=== PATIENT | male | born 1955 | race Caucasian/White ===

== ENCOUNTER 2024-07-17 00:14 | Inpatient (IN) | payer MEDICARE, MEDICAID, SELFPAY ==
[2024-07-17] VITALS (23 sets, daily range): BP systolic 75–126; BP diastolic 41–87; PULSE 63–109; RESP 14–22; TEMP 36.3–37.2; O2SAT 94–100; BMI 24.2
--- NOTE | 2024-07-17 00:19 | PC.NURSE ---
First contact with pt in Room 3, pt changed into gown, connected to bedside rental sales associate, call light within reach.
--- NOTE | 2024-07-17 00:30 | PC.NURSE ---
Pt incontinent, dark-red blood noted coming from rectum, brief changed, chepe-care provided.
--- NOTE | 2024-07-17 00:41 | XR_ITS ---
Examination: CT abdomen and pelvis without contrast. Coronal 3-D reconstructions. Sagittal 2-D reconstructions. Date and time of exam:July 17, 2024 1446 hours INDICATIONS: Onset lower gastrointestinal bleeding today CTDI: vol (mGy): 8.09 DLP: (mGycm): 515 Technique: Axial images of the abdomen have been obtained, 3 mm slice thickness Intravenous contrast material has not been administered. Low dose protocols were performed. One or more of the following dose reduction techniques were used; automated exposure control, adjustment of the mA and/or KV according to patient size, use of iterative reconstruction technique. Findings: Lack of intravenous contrast limits assessment for gastrointestinal bleeding Small retrocardiac gastric hernia Patient motion obscures scan detail Cholelithiasis Distended gallbladder Gallbladder wall appears thickened Fatty liver No pancreatic mass No bowel obstruction Significant diffuse thickening of the wall of the rectosigmoid with abundant stool in the rectum Urinary bladder is contracted IMPRESSION: Cholelithiasis, recommend gallbladder sonography follow-up to exclude cholecystitis Fatty liver Prominent diffuse wall thickening involving the rectosigmoid colon, consider nonspecific colitis, recommend colonoscopy to exclude underlying colonic tumor in the rectosigmoid region
--- NOTE | 2024-07-17 00:47 | PD.EDADULT ---
ED General RME/HPI General Chief complaint: GI Bleed Stated complaint: SYNCOPAL Time Seen by Provider: 07/17/24 00:46 Arrival date/time: 07/17/24 00:14 RME / HPI RME / HPI narrative: Chief complaint: from SNF - bright red blood in toilet HPI: Patient is a 68 year old male who is minimally verbal at baseline, with past medical history developmental delay, essential HTN, Type 2 NIDDM, BPH, GERD and constipation, who was brought to the ER by EMS after being found with large amount of bright red blood in the toilet at the intermediate. Per EMS, intermediate denied any past history of GIB. He is not on any blooth thinners at this time as per records. On removing the diaper, large amount of reddish-brown output noted, no stools. Patient does not appear to be in any discomfort at rest, but grimaces whenever the abdominal area is touched. Allergies: NKFDA Social history: Tobacco?Use:?Negative ETOH?Use:?Negative Drug?Note:?Negative Social?History?Note:?From [facility] Family history: Unknown Related Data Home Medications ?Medication ?Instructions ?Recorded ?Confirmed tamsulosin 0.4 mg capsule (Flomax) 0.4 mg PO QDAY ##0 10/05/15 11/23/22 metformin 500 mg tablet 500 mg PO BID #0 tabs 01/30/16 11/23/22 (Glucophage) nitrofurantoin macrocrystal 50 mg 50 mg PO QDAY 08/27/18 11/23/22 capsule lisinopril 10 mg tablet 10 mg PO QDAY 11/22/19 11/23/22 atorvastatin 20 mg tablet 1 tab PO QDAY 12/25/21 11/23/22 docusate sodium 250 mg capsule 1 cap PO BID 12/25/21 11/23/22 finasteride 5 mg tablet 5 mg PO QDAY 12/25/21 11/23/22 Previous Rx's ?Medication ?Instructions ?Recorded cefuroxime axetil 250 mg tablet 250 mg PO BID #14 tabs 09/20/22 Allergies Allergy/AdvReac Type Severity Reaction Status Date / Time ibuprofen Allergy unknown Verified 02/08/23 12:09 Review of Systems Review of Systems ROS Unobtainable: unobtainable due to mental status ED Exam Narrative Physical exam: Constitutional Developmentally delayed, minimally verbal at baseline HEENT Vision grossly intact. Patent nares. Trachea midline. Respiratory Chest normal on inspection and clear to auscultation bilaterally. Cardiovascular S1 and S2 audible, RRR. No murmurs or carotid bruit. No gross JVD. Abdominal Soft and tender to palpation in LLUQ and LLQ. BS + Genitourinary No bladder tenderness, no flank pain. Normal to palpation. Musculoskeletal Extremities tone within normal limits. No LE edema. Neurological CN II - XII grossly intact. Extremity motor and sensation grossly intact. Skin Warm, dry and intact. No apparent lesions. Course Course Course Narrative: CT Abdomen/Pelvis wo con: Impression: 1. Gallstones and distended gallbladder suspicious for acute cholecystitis,consider correlation with right upper quadrant ultrasound. 2. Probable mild colitis. 3. Small hiatus hernia. 4. Possible cystitis. Quality Measures none Orders Category Date Time Status Continuous Pulse Oximetry STAT Care 07/17/24 01:32 Completed EKG (ED ONLY) *Do not use* NOW Care 07/17/24 00:58 Completed In and Out Catheter X1PRN Care 07/17/24 01:32 Active Insert IV NOW Care 07/17/24 01:04 Active Occult Blood,Stool (Nursing) NOW Care 07/17/24 00:41 Active Transfuse,blood/blood products NOW Care 07/17/24 03:51 Active Consult to Gastroenterology Routine Cons 07/17/24 03:[address] abdomen pelvis wo con Stat Exams 07/17/24 00:41 Taken EKG (ED Only) Stat Exams 07/17/24 00:58 Draft B-Type Natriuretic Peptide Stat Lab 07/17/24 01:10 Completed Blood Culture (Lab) Stat Lab 07/17/24 01:35 Received CBC Stat Lab 07/17/24 01:10 Completed CMP [Comprehensive Metabolic Panel] Stat Lab 07/17/24 01:10 Completed Lactic Acid [Lactate (Lactic Acid)] Stat Lab 07/17/24 01:35 Results Lactic Acid [Lactate (Lactic Acid)] Stat Lab 07/17/24 04:15 Ordered Magnesium Stat Lab 07/17/24 01:10 Completed Phosphorous Stat Lab 07/17/24 01:10 Completed Procalcitonin Stat Lab 07/17/24 01:10 Completed Prothrombin Time with INR Stat Lab 07/17/24 01:10 Completed Type and Screen Stat Lab 07/17/24 01:20 Results Urinalysis Stat Lab 07/17/24 00:43 Ordered prbc [Red Blood Cells] Stat Lab 07/17/24 01:20 Results Piper/Tazo 3.375 gm [Zosyn] Med 07/17/24 01:30 Discontinued 3.375 gm in 50 ml IV X1 Sodium Chloride 0.9% 1000 ml [Ns] 1,000 ml Med 07/17/24 01:11 Discontinued IV 999 mls/hr Sodium Chloride 0.9% 250 ml [Ns] 250 ml Med 07/17/24 00:41 Discontinued IV 999 mls/hr Sodium Chloride 0.9% 500 ml [Ns] 500 ml Med 07/17/24 03:56 Discontinued IV 999 mls/hr Reevaluation(s) Reevaluation #1: 4:15 AM BP improved after 1.5L IVF 1U PRBC running Vital Signs Vital signs: Vital Signs Temperature 98.9 F 07/17/24 00:31 Pulse Rate 109 H 07/17/24 00:31 Respiratory Rate 22 H 07/17/24 00:31 Blood Pressure 126/80 07/17/24 00:31 Pulse Oximetry (%) 99 07/17/24 00:31 Oxygen Delivery Method Room Air 07/17/24 00:31 [facility] Patient data External records reviewed:: [facility] previous records Clinical information provided by:: EMS Social determinants that could affect healthcare access:: mental health Patient has the following chronic illnesses:: developmental delay, essential HTN, Type 2 NIDDM, BPH, GERD and constipation, How is presenting disease/condition affected by chronic disease/condition?: exacerbated by Evaluation data The following diagnostics were reviewed and interpreted by me:: lab results, radiology exam(s) and EKG tracing(s) Lab and/or radiology exams considered but not ordered:: MRI Interpretation Summary: GIB secondary to colitis noted on CT abdo, pending endoscopy for further evaluation Medications Medications considered but not ordered:: morphine Medication administrations:: Medication Administration History Discontinued Medications Sodium Chloride (Ns) 250 mls @ 999 mls/hr IV .Q16M ONE Stop: 07/17/24 00:56 Last Infusion: 07/17/24 01:18 Dose: Infused Documented By: Admin: 07/17/24 01:02 Dose: 999 mls/hr Documented By: LIT Sodium Chloride (Ns) 1,000 mls @ 999 mls/hr IV .Q1H1M ONE Stop: 07/17/24 02:11 Last Infusion: 07/17/24 02:25 Dose: Infused Documented By: Admin: 07/17/24 01:24 Dose: 999 mls/hr Documented By: LIT Piperacillin/Tazobactam/Dextrose (Zosyn) 3.375 gm in 50 mls @ 100 mls/hr IV X1 ONE Stop: 07/17/24 01:59 Last Infusion: 07/17/24 02:16 Dose: Infused Documented By: Admin: 07/17/24 01:46 Dose: 100 mls/hr Documented By: LIT Sodium Chloride (Ns) 500 mls @ 999 mls/hr IV .Q31M ONE Stop: 07/17/24 04:26 Last Admin: 07/17/24 04:26 Dose: 999 mls/hr Documented By: LIT continue Consultations Consultation(s) initiated? (list below): Yes Consultation #1 (Physician, Specialty, Details): GI - Dr Gibbs Diagnosis Differential Diagnosis ED Complaint MDM: Diverticulitis Most likely diagnosis given after review of the tests above:: Acute GI bleed Admission Indicated Admission indicated?: indicated Explain why admission is indicated or not indicated:: acute GIB Admission Request Was there a request for admission?: Yes Admission Attestation Admission request attestation: Discussed case with Dr Adan from Hospitalist service regarding admission. Discussed patients ED course, exam findings, labs, and radiology results. The Hospitalist [agrees] to accept the patient for admission. Disposition Plan Disposition Plan: Admit Medical Decision Making MDM Narrative MDM Narrative: Patient is a 68 year old male who is developmentally delayed at baseline, who was brought from a intermediate for acute hematochezia. Labs: Low Hb 10.9 (baseline 12-13), JOLIE cr 1.6 (baseline Cr 0.8) and LA 2.9 Physical exam: tenderness in LUQ and LLQ Imaging: CT abdomen showed colitis and cystitis. Diagnosis: Plan: Decision to admit for further GI work up. Differential Diagnosis Differential Diagnosis: Diverticulitis Lab Data 07/17/24 01:10 07/17/24 01:10 Labs: Lab Results 07/17/24 07/17/24 07/17/24 Range/Units 01:10 01:20 01:35 WBC 16.3 H (3.8-10.6) Thou/mm3 RBC 3.55 L (4.50-5.90) Miln/mm3 Hgb 10.9 L (13.5-16.0) g/dL Hct 33.3 L (41.0-53.0) % MCV 94 (80-100) fL MCH 30.7 (25.0-35.0) pg MCHC 32.7 (31.0-37.0) g/dl RDW Std Deviation 45.5 H (35.1-43.9) fL Plt Count 196 (140-440) Thou/mm3 Neut % (Auto) 80 (37-80) % Lymph % (Auto) 12 (10-50) % [place] % (Auto) 7 (0-12) % Eos % (Auto) 1 (0-10) % Baso % (Auto) 0 (0-2.5) % Neut # (Auto) 13.0 H (1.8-7.7) Thou/mm3 Lymph # (Auto) 2.0 (1.0-4.8) Thou/mm3 [place] # (Auto) 1.1 H (0.0-0.8) Thou/mm3 Eos # (Auto) 0.1 (0.0-0.5) Thou/mm3 Baso # (Auto) 0.1 (0.0-0.2) Thou/mm3 Immature Gran # (Auto) 0.07 H (0.00-0.00) Thou/mm3 Absolute Nucleated RBC 0.00 (0.00-0.00) Thou/mm3 Immature Gran % 0 (0-0) % Nucleated RBC % 0 (0) /100 WBC PT 12.3 H (9.0-12.2) Seconds INR 1.1 (0.9-1.3) Sodium 141 (136-145) mMol/L Potassium 5.2 H (3.4-5.1) mMol/L Chloride 109 H (98-107) mMol/L Carbon Dioxide 24.2 (20.0-31.0) mMol/L Anion Gap 8 (7-16) BUN 47 H (9-23) mg/dL Creatinine 1.6 H (0.6-1.3) mg/dL Estim Creat Clear Calc 39.3 L (>60) mL/min eGFR 46 L (60 - ) See Note BUN/Creatinine Ratio 29 H (12-20) Ratio Glucose 191 H (74-106) mg/dL Calculated Osmolality 298 H (275-295) Lactic Acid 2.9 H (0.4-2.0) mMol/L Calcium 8.6 (8.3-10.6) mg/dL Corrected Calcium 9.2 (8.5-10.1) mg/dL Phosphorus 3.5 (2.4-5.1) mg/dL Magnesium 1.8 (1.6-2.6) mg/dL Total Bilirubin 0.5 (0.3-1.2) mg/dL AST 11 (0-34) U/L ALT 9 L (10-49) U/L Alkaline Phosphatase 60 (46-116) U/L B-Natriuretic Peptide 33 (0-100) pg/mL Total Protein 5.7 (5.7-8.2) gm/dL Albumin 3.3 L (3.4-4.8) gm/dL Globulin 2.4 (2.3-3.5) gm/dL Albumin/Globulin Ratio 1.4 (1.2-2.2) Procalcitonin 0.10 (0.0-0.49) ng/ml Blood Type O Positive Antibody Screen NEGATIVE Crossmatch See Detail Blood Bank Wristband ID Yes Discharge Plan Prescriptions/Referrals Prescriptions/Med Rec: No Action tamsulosin [Flomax] 0.4 MG capsule,extended release 24hr 0.4 mg PO QDAY Qty: 0 metformin [Glucophage] 500 MG tablet 500 mg PO BID Qty: 0 atorvastatin 20 mg tablet 1 tab PO QDAY docusate sodium 250 mg capsule 1 cap PO BID finasteride 5 mg tablet 5 mg PO QDAY nitrofurantoin macrocrystal 50 mg Capsule 50 mg PO QDAY lisinopril 10 mg tablet 10 mg PO QDAY cefuroxime axetil 250 mg tablet 250 mg PO BID Qty: 14 0RF Problem List Clinical Impression: Hematochezia, Lower gastrointestinal hemorrhage Patient/Caregiver Discharge Instructions Print Language: Urdu
--- NOTE | 2024-07-17 00:58 | EKG_ITS ---
[facility] Test Date: 2024-07-17 Pat Name: DULCE CALVO Department: Room: - Gender: Male Thoracic Medicine Physician: : [id number] Requested By: Krishna Quezada Order Number: [id number] Reading MD: Krishna Quezada Measurements Intervals [place] Rate: 98 P: 48 WV: 158 QRS: -21 QRSD: 147 T: 35 QT: 366 QTc: 469 Interpretive Statements SINUS RHYTHM BORDERLINE LEFT AXIS DEVIATION [QRS AXIS < -20] RIGHT BUNDLE BRANCH BLOCK [120+ ms QRS DURATION, UPRIGHT V1, 40+ ms S IN I/aVL/V4/V5/V6] Compared to ECG 08/26/2018 15:03:51 Sinus bradycardia no longer present /store/S0/[id number]/ecg/[id number].pdf
[2024-07-17] MEDS: SODIUM CHLORIDE 0.9% 250 ML 250 ML 999 ML IV (01:02)
[2024-07-17 01:21] LABS: Basophils # (Auto) 0.1 Thou/mm3 (0.0-0.2); Basophils % (Auto) 0 % (0-2.5); Eosinophils # (Auto) 0.1 Thou/mm3 (0.0-0.5); Eosinophils % (Auto) 1 % (0-10); Hematocrit 33.3 % (41.0-53.0); Hemoglobin 10.9 g/dL (13.5-16.0); Immature Granulocytes % (Auto) 0 % (0-0); Immature Granulocytes Auto 0.07 Thou/mm3 (0.00-0.00); Lymphocytes % (Auto) 12 % (10-50); Mean Corpuscular HGB Conc 32.7 g/dl (31.0-37.0); Mean Corpuscular Hemoglobin 30.7 pg (25.0-35.0); Mean Corpuscular Volume 94 fL (80-100); Monocytes # (Auto) 1.1 Thou/mm3 (0.0-0.8); Monocytes % (Auto) 7 % (0-12); Neutrophils % (Auto) 80 % (37-80); Nucleated Red Blood Cell % 0 /100 WBC (0); Platelet Count 196 Thou/mm3 (140-440); RDW Standard Deviation 45.5 fL (35.1-43.9); Red Blood Count 3.55 Miln/mm3 (4.50-5.90); White Blood Count 16.3 Thou/mm3 (3.8-10.6)
[2024-07-17] MEDS: SODIUM CHLORIDE 0.9% 1000 ML 1,000 ML 999 ML IV (01:24)
[2024-07-17 01:37] LABS: Alanine Aminotransferase 9 U/L (10-49); Albumin, Serum 3.3 gm/dL (3.4-4.8); Albumin/Globulin Ratio 1.4 (1.2-2.2); Alkaline Phosphatase 60 U/L (46-116); Anion Gap 8 (7-16); Aspartate Amino Transferase 11 U/L (0-34); BUN/Creatinine Ratio 29 Ratio (12-20); Bilirubin,Total 0.5 mg/dL (0.3-1.2); Blood Urea Nitrogen 47 mg/dL (9-23); Calcium 8.6 mg/dL (8.3-10.6); Calcium (Corrected) 9.2 mg/dL (8.5-10.1); Carbon Dioxide 24.2 mMol/L (20.0-31.0); Chloride 109 mMol/L (98-107); Creatinine (Component) 1.6 mg/dL (0.6-1.3); Estimated Creatinine Clearance 39.3 mL/min (>60); Globulin 2.4 gm/dL (2.3-3.5); Glucose 191 mg/dL (74-106); Osmolality,Calculated 298 (275-295); Potassium 5.2 mMol/L (3.4-5.1); Sodium 141 mMol/L (136-145); Total Protein 5.7 gm/dL (5.7-8.2); eGFR 46 See Note
[2024-07-17] MEDS: PIPER/TAZO 3.375 GM 3.375 GM/50 ML BAG IV ×4 (01:46→21:36)
[2024-07-17 01:56] LABS: Lactate (Lactic Acid) 2.9 mMol/L (0.4-2.0)
[2024-07-17 02:10] LABS: INR 1.1 (0.9-1.3); Prothrombin Time 12.3 Seconds (9.0-12.2)
[2024-07-17 02:25] LABS: B-Type Natriuretic Peptide 33 pg/mL (0-100)
[2024-07-17 02:30] LABS: Magnesium 1.8 mg/dL (1.6-2.6); Phosphorous 3.5 mg/dL (2.4-5.1)
--- NOTE | 2024-07-17 03:47 | PRELIM_ITS ---
CT scan of the abdomen and pelvis without intravenous contrast (axial sections with sagittal and marli nal reformats) July 17, 2024 0246 hoursClinical History: Lower gastrointestinal bleeding.Compariso n: No prior study is available for comparison.Findings:Bilateral lower lobes atelectasis.The liver, p ancreas, spleen, kidneys and adrenals are unremarkable on this noncontrast study.Gallstones and diste nded gallbladder.No evidence of bowel obstruction.No evidence of appendicitis. There is no mesenteric or retroperitoneal adenopathy.The urinary bladder is nondistended, limited evaluation, questionable thickening of the urinary bladder wall. There is no free fluid or free air.Degenerative changes of th e imaged portions of the spine. No acute fractures. Right femoral hardware is noted.Vascular calcific ations.Pelvic phleboliths.Fluid stools in the colon associated with mild colonic wall thickening.Smal l hiatus hernia.Impression:1. Gallstones and distended gallbladder suspicious for acute cholecystitis ,consider correlation with right upper quadrant ultrasound.2. Probable mild colitis.3. Small hiatus h ernia.4. Possible cystitis. Report Electronically Signed By: Christiano Tan 07/17/2024 3:46:55 AM [E ST]
[2024-07-17] MEDS: SODIUM CHLORIDE 0.9% 500 ML 500 ML 999 ML IV (04:26)
--- NOTE | 2024-07-17 04:50 | PC.NURSE ---
Pt incontinent, x1 bloody BM, +brief changed, chepe-care provided.
[2024-07-17 04:55] LABS: Reflex Lactate? Y
[2024-07-17 04:57] LABS: Collection Type, Urine Clean Catch
[2024-07-17 05:06] LABS: Bilirubin,Urine Negative (Negative); Blood,Urine 1+ (Negative); Clarity,Urine Clear (Clear/Hazy); Color,Urine Lt-Yellow (Lt Yel-Yel); Glucose, Urine Negative (Negative); Ketones,Urine Negative (Negative); Leukocyte Esterase,Urine Positive (Negative); Nitrite,Urine Negative (Negative); Protein,Urine Trace (Neg - Trace); RBC,Urine 6 /hpf (0-3); Specific Gravity,Urine 1.024 (1.001-1.035); Squamous Epithelial Cell,Urine 2 /hpf (0-5); Urobilinogen,Urine Negative mg/dL (0.0-1.0); WBC,Urine 45 /hpf (0-5)
--- NOTE | 2024-07-17 05:20 | PD.RESHP ---
Documentation for date of: 07/17/24 [facility] History of Present Illness Chief complaint: Kat blood per rectum History of present illness: Patient has developmental delay due to which history is limited, but patient is able to follow verbal commands and give answers to simple questions A 68-year-old male with past medical history of developmental delay, renal cell carcinoma s/p right nephrectomy in 2016, BPH, diabetes mellitus, right hydrocelectomy, left inguinal hernia repair, left hydrocele living in a facility was brought to the hospital with a chief complaints of bleeding per rectum Patient was apparently normal 1 day ago. On the day of admission, patient was noted to have a large amount of blood on the toilet seat following which EMS was called and patient was brought to the [facility]. In the ED, patient was noted to have blackish discoloration of stool. Denied abdominal pain, constipation, shortness of breath, intake of blood thinners, pain medication. ED Course: -Initial vitals were blood pressure 126/80 mmHg, pulse rate 109 bpm, respiratory rate 22/min, temperature 98.9 ?F, SpO2 99% with room air. -Labs significant for WBC 16.3, Hb 10.9, potassium 5.2, BUN 47, creatinine 1.6, glucose 191, lactate 2.9, procalcitonin 0.1. Urinalysis showed 45 WBC, 6 RBC. -Abdomen/pelvis CT showed Gallstones and distended gallbladder suspicious for acute cholecystitis. Probable mild colitis. Small hiatus hernia. Possible cystitis. -EKG showed normal sinus rhythm -In the ED, patient was given 1.5 L NS and Zosyn -Patient was admitted for GI bleed Past medical history: Developmental delay, renal cell carcinoma status post right nephrectomy, BPH, diabetes mellitus, left hydrocele Past surgical history: Right nephrectomy, right hydrocelectomy, left inguinal hernia repair Social history: Unknown Review of Systems Review of Systems ROS Unobtainable: unobtainable due to mental status Exam Vital Signs Temp Pulse Resp BP Pulse Ox O2 Del Method 98.6 F 97 19 119/77 100 Room Air 07/17/24 04:56 07/17/24 04:56 07/17/24 04:56 07/17/24 04:56 07/17/24 04:56 07/17/24 04:00 Narrative Exam General: Awake. Able to follow verbal commands and answer simple questions HEENT: Normocephalic, atraumatic, mucous membranes moist. Heart: Regular rate and rhythm, no murmurs. Lungs: Clear to auscultation with no wheezing or crackles. Abdomen: Soft, nondistended, nontender, positive bowel sounds. ?No guarding or rebound tenderness. Neurologic: Alert and oriented x3, no gross neurological deficit, and patient able to move all 4 extremities. Extremities: No edema. Skin: No rash or ecchymoses. Results: Labs 07/17/24 12:00 07/17/24 12:00 Labs: Short CBC 07/17/24 Range/Units 01:10 WBC 16.3 H (3.8-10.6) Thou/mm3 Hgb 10.9 L (13.5-16.0) g/dL Hct 33.3 L (41.0-53.0) % Plt Count 196 (140-440) Thou/mm3 BMP 07/17/24 01:10 Sodium 141 Potassium 5.2 H Chloride 109 H Carbon Dioxide 24.2 BUN 47 H Creatinine 1.6 H Glucose 191 H Calcium 8.6 Liver Function 07/17/24 Range/Units 01:10 Total Bilirubin 0.5 (0.3-1.2) mg/dL AST 11 (0-34) U/L ALT 9 L (10-49) U/L Alkaline Phosphatase 60 (46-116) U/L Albumin 3.3 L (3.4-4.8) gm/dL Urine 07/17/24 Range/Units 04:33 Urine Color Lt-Yellow (Lt Yel-Yel) Urine Clarity Clear (Clear/Hazy) Urine pH 6.0 (5.0-7.0) Ur Specific [place] 1.024 (1.001-1.035) Urine Protein Trace (Neg - Trace) Urine Glucose (UA) Negative (Negative) Quality Measures Quality Measures none Advance care planning discussed with:: patient Medications Home Medications and Allergies Home Medications ?Medication ?Instructions ?Recorded ?Confirmed ?Type tamsulosin 0.4 mg capsule (Flomax) 0.4 mg PO QDAY ##0 10/05/15 07/17/24 History metformin 500 mg tablet 500 mg PO BID #0 tabs 01/30/16 07/17/24 History (Glucophage) nitrofurantoin macrocrystal 50 mg 50 mg PO QDAY 08/27/18 07/17/24 History capsule lisinopril 10 mg tablet 10 mg PO QDAY 11/22/19 07/17/24 History atorvastatin 20 mg tablet 1 tab PO QDAY 12/25/21 07/17/24 History docusate sodium 250 mg capsule 1 cap PO BID 12/25/21 07/17/24 History finasteride 5 mg tablet 5 mg PO QDAY 12/25/21 07/17/24 History Allergies Allergy/AdvReac Type Severity Reaction Status Date / Time ibuprofen Allergy unknown Verified 02/08/23 12:09 Visit Medications Acetaminophen (Acetaminophen 325 Mg Tablet) 650 mg PO Q6H PRN PRN Reason: Fever >101.5 Stop: 08/16/24 05:15 Ondansetron HCl (Ondansetron Inj 2 Mg/Ml Inj 2 Ml) 4 mg IV Q6H PRN; Protocol PRN Reason: NAUSEA OR VOMITING Stop: 08/16/24 05:15 Pantoprazole Sodium (Pantoprazole Inj 40 Mg Vial) 40 mg IVP QDAY HAL Stop: 08/16/24 08:59 Discontinued Medications Sodium Chloride (Ns) 250 mls @ 999 mls/hr IV .Q16M ONE Stop: 07/17/24 00:56 Last Infusion: 07/17/24 01:18 Dose: Infused Sodium Chloride (Ns) 1,000 mls @ 999 mls/hr IV .Q1H1M ONE Stop: 07/17/24 02:11 Last Infusion: 07/17/24 02:25 Dose: Infused Piperacillin/Tazobactam/Dextrose (Zosyn) 3.375 gm in 50 mls @ 100 mls/hr IV X1 ONE Stop: 07/17/24 01:59 Last Infusion: 07/17/24 02:16 Dose: Infused Sodium Chloride (Ns) 500 mls @ 999 mls/hr IV .Q31M ONE Stop: 07/17/24 04:26 Last Infusion: 07/17/24 04:57 Dose: Infused Assessment & Plan Plan A 68-year-old male with past medical history of developmental delay, renal cell carcinoma s/p right nephrectomy in 2016, BPH, diabetes mellitus, right hydrocelectomy, left inguinal hernia repair, left hydrocele living in a facility was brought to the hospital with a chief complaints of bleeding per rectum # GI bleed #? Hemorrhoids -Patient was brought to the hospital with complaints of kat blood noted in the toilet seat -Patient denies abdominal pain, fever, any other complaints. -Vitals at the time of admission showed pulse rate 109 bpm, respiratory rate 22/min -On examination, no tenderness or abdominal distention noted. -Labs showed WBC of 16.3, Hb 10.9. INR is 1.1. lactate is 2.9 -Abdomen/pelvis CT showed Gallstones and distended gallbladder suspicious for acute cholecystitis. Probable mild colitis. Small hiatus hernia. Possible cystitis. -Patient was started on blood transfusion in the ED and a dose of Zosyn was given in the ED Plan -Kept on n.p.o. for now in view of anticipated procedure -Dr. Gibbs was consulted -Monitor for further bleeding manifestations -Monitor CBC # Normocytic normochromic anemia -Hemoglobin is 12.4 in 09/20 -Hemoglobin at the time of admission is 10.9, likely blood loss -1 bag of PRBC transfusion is done in the ED -Monitor CBC # Incidental findings # SIRS criteria, 09/01 -Abdomen/pelvis CT showed Gallstones and distended gallbladder suspicious for acute cholecystitis. Probable mild colitis. Small hiatus hernia. Possible cystitis. - Patient denies fever, abdominal pain. On examination, there is no tenderness in the abdomen, less likely acute cholecystitis. -3 SIRS criteria = pulse 109 bpm, respiratory rate 22/min, WBC 16.3 -Gallbladder ultrasound is ordered. # JOLIE versus CKD # Mild Hyperkalemia # Right renal cell carcinoma status post nephrectomy, 2015 -Baseline creatinine is 1 in 2022 -Creatinine at the time of admission is 1.6 and BUN is 47. Potassium is 5.2 -Patient was given 1.5 L NS in the ED -Monitor renal functions -Renally dose medications and avoid nephrotoxic medications. # Diabetes mellitus -Last known A1c is 6.2 in 2021 -HbA1c is ordered -Start medications as needed. # BPH -Patient is following with urologist Dr. Arcos, per chart review -Patient was on tamsulosin and finasteride -Medication reconciliation is ordered and resume medications Hospital Maintenance: Dispo: medtele DVT ppx: SCD GI ppx: PROTONIX Diet: N.p.o IV lines: Peripheral Code status: Full Patient plan of care was discussed with the attending physician, Dr. Urvashi Adan, PGY1 Attending Provider Attestation/Addendum Face to face evaluation was performed by me. I have personally seen and examined the patient. I discussed the assessment and plan with the entire medicine team. I reviewed available medical records, imaging studies, laboratory results. I agree with the above subjective data, objective findings, assessment and plan except as corrected by me or noted below Lower gi bleed Hx of hemorrhoids T2DM JOLIE , prerenal, possible atn , can not rule out underlying ckd stage 2? - GI consult, transfuse PRBC if needed to keep Hb > 7
--- NOTE | 2024-07-17 06:04 | XR_ITS ---
Examination: Abdomen sonogram, Limited Date and time of exam: January 14, 2025 at 0740 hours INDICATIONS: Onset abdominal pain today, CT examination July 17, 2024 0246 hours gallstones, distended gallbladder Technique: Real-time knutson scale transabdominal sonographic images of the upper abdomen obtained. Findings: Multiple gallstones Gallbladder wall thickened 0.39 cm although no definite edema Common bile duct 0.3 cm Pancreatic head 2.9 cm Liver 16 cm no focal liver lesions Normal hepatopedal portal venous flow Patent IVC IMPRESSION: Cholelithiasis Abnormal thickening of the gallbladder wall 0.39 cm, recommend HIDA scan or MRCP follow-up to exclude cholecystitis
--- NOTE | 2024-07-17 07:28 | PC.NURSE ---
Pt alert upon assumption of care, oriented to himself only. Pt has garbled speech that is baseline for pt. Pt denies any pain or discomfort at ths time. Call perry remains in reach.
[2024-07-17 07:43] LABS: Lactic Acid, 3 HR 1.1 mMol/L (0.4-2.0)
[2024-07-17 07:55] LABS: Basophils % (Auto) 0 % (0-2.5); Eosinophils % (Auto) 0 % (0-10); Hemoglobin 10.7 g/dL (13.5-16.0); Immature Granulocytes % (Auto) 0 % (0-0); Immature Granulocytes Auto 0.04 Thou/mm3 (0.00-0.00); Lymphocytes # (Auto) 1.7 Thou/mm3 (1.0-4.8); Lymphocytes % (Auto) 17 % (10-50); Mean Corpuscular HGB Conc 34.5 g/dl (31.0-37.0); Mean Corpuscular Hemoglobin 31.1 pg (25.0-35.0); Mean Corpuscular Volume 90 fL (80-100); Monocytes # (Auto) 0.8 Thou/mm3 (0.0-0.8); Monocytes % (Auto) 8 % (0-12); Neutrophils # (Auto) 7.5 Thou/mm3 (1.8-7.7); Neutrophils % (Auto) 74 % (37-80); Nucleated Red Blood Cell % 0 /100 WBC (0); Platelet Count 179 Thou/mm3 (140-440); RDW Standard Deviation 45.5 fL (35.1-43.9); Red Blood Count 3.44 Miln/mm3 (4.50-5.90); White Blood Count 10.1 Thou/mm3 (3.8-10.6)
[2024-07-17 08:11] LABS: Glucose Estimated Average 148 mg/dL (80-131); Hemoglobin A1C 6.8 % Hgb (4.8-6.0)
[2024-07-17 08:22] LABS: Alanine Aminotransferase 8 U/L (10-49); Albumin, Serum 3.2 gm/dL (3.4-4.8); Albumin/Globulin Ratio 1.4 (1.2-2.2); Alkaline Phosphatase 58 U/L (46-116); Anion Gap 9 (7-16); Aspartate Amino Transferase < 10 U/L (0-34); BUN/Creatinine Ratio 38 Ratio (12-20); Bilirubin,Total 0.7 mg/dL (0.3-1.2); Blood Urea Nitrogen 45 mg/dL (9-23); Calcium (Corrected) 8.6 mg/dL (8.5-10.1); Chloride 110 mMol/L (98-107); Cholesterol 76 mg/dL (132-200); Creatinine (Component) 1.2 mg/dL (0.6-1.3); Estimated Creatinine Clearance 52.4 mL/min (>60); Globulin 2.3 gm/dL (2.3-3.5); Glucose 136 mg/dL (74-106); HDL Cholesterol 25 mg/dL (40-60); LDL Cholesterol,Calculated 37 mg/dL (0-130); Osmolality,Calculated 294 (275-295); Potassium 4.8 mMol/L (3.4-5.1); Sodium 141 mMol/L (136-145); Total Protein 5.5 gm/dL (5.7-8.2); Triglycerides 69 mg/dL (30-150); eGFR > 60 See Note
[2024-07-17] MEDS: TAMSULOSIN HCL 0.4 MG CAPSULE PO (09:17)
[2024-07-17 12:24] LABS: Anion Gap 5 (7-16); BUN/Creatinine Ratio 34 Ratio (12-20); Blood Urea Nitrogen 44 mg/dL (9-23); Calcium 8.1 mg/dL (8.3-10.6); Carbon Dioxide 25.9 mMol/L (20.0-31.0); Chloride 110 mMol/L (98-107); Creatinine (Component) 1.3 mg/dL (0.6-1.3); Estimated Creatinine Clearance 48.4 mL/min (>60); Glucose 111 mg/dL (74-106); Osmolality,Calculated 293 (275-295); Potassium 4.7 mMol/L (3.4-5.1); Sodium 141 mMol/L (136-145); eGFR 59 See Note
[2024-07-17 13:55] LABS: Hematocrit 31.3 % (41.0-53.0); Hemoglobin 10.4 g/dL (13.5-16.0)
--- NOTE | 2024-07-17 14:50 | ESPR_ITS ---
<Statement entered by Clay Villagomez MD - 07/21/24 12:19> I reviewed above note and agree with findings and plans. I have also personally examined the patient with medicine team and went over assessment and plan with medical team including internal grinder set up operator and resident physician. Documentation for date of: 07/17/24 Subjective Subjective Interval history: No acute overnight events. Poor historian secondary to the mental delay. No complaints. No signs of distress, agitation or anxiety. Exam Vital Signs Temp Pulse Resp BP Pulse Ox O2 Del Method 98.4 F 74 17 112/61 95 Room Air 07/17/24 14:38 07/17/24 14:38 07/17/24 14:38 07/17/24 14:38 07/17/24 14:38 07/17/24 14:38 Narrative Exam General: Awake. Able to follow verbal commands and answer simple questions HEENT: Normocephalic, atraumatic, mucous membranes moist. Heart: Regular rate and rhythm, no murmurs. Lungs: Clear to auscultation with no wheezing or crackles. Abdomen: Soft, nondistended, nontender, positive bowel sounds. ?No guarding or rebound tenderness. Neurologic: Alert and oriented x3, no gross neurological deficit, and patient able to move all 4 extremities. Extremities: No edema. Skin: No rash or ecchymoses. Objective Labs 07/17/24 12:00 07/17/24 12:00 Labs: Laboratory Results - last 24 hr 07/17/24 07/17/24 07/17/24 01:10 01:20 01:35 WBC 16.3 H RBC 3.55 L Hgb 10.9 L Hct 33.3 L MCV 94 MCH 30.7 MCHC 32.7 RDW Std Deviation 45.5 H Plt Count 196 Neut % (Auto) 80 Lymph % (Auto) 12 [place] % (Auto) 7 Eos % (Auto) 1 Baso % (Auto) 0 Neut # (Auto) 13.0 H Lymph # (Auto) 2.0 [place] # (Auto) 1.1 H Eos # (Auto) 0.1 Baso # (Auto) 0.1 Immature Gran # (Auto) 0.07 H Absolute Nucleated RBC 0.00 Immature Gran % 0 Nucleated RBC % 0 PT 12.3 H INR 1.1 Sodium 141 Potassium 5.2 H Chloride 109 H Carbon Dioxide 24.2 Anion Gap 8 BUN 47 H Creatinine 1.6 H Estim Creat Clear Calc 39.3 L eGFR 46 L BUN/Creatinine Ratio 29 H Glucose [address] Glu mg/dL Hemoglobin A1c Calculated Osmolality 298 H Lactic Acid 2.9 H Calcium 8.6 Corrected Calcium 9.2 Phosphorus 3.5 Magnesium 1.8 Total Bilirubin 0.5 AST 11 ALT 9 L Alkaline Phosphatase 60 B-Natriuretic Peptide 33 Total Protein 5.7 Albumin 3.3 L Globulin 2.4 Albumin/Globulin Ratio 1.4 Triglycerides Cholesterol LDL Cholesterol, Calc HDL Cholesterol Cholesterol/HDL Ratio Procalcitonin 0.10 Ur Collection Type Urine Color Urine Clarity Urine pH Ur Specific [place] Urine Protein Urine Glucose (UA) Urine Ketones Urine Blood Urine Nitrite Urine Bilirubin Urine Urobilinogen (Auto) Ur Leukocyte Esterase Urine RBC Urine WBC Ur Squamous Epith Cells Urine Bacteria Blood Type O Positive Antibody Screen NEGATIVE Crossmatch See Detail Blood Bank Wristband ID Yes 07/17/24 07/17/24 07/17/24 04:33 07:33 12:00 WBC 10.1 D RBC 3.44 L Hgb 10.7 L 10.4 L Hct 31.0 L 31.3 L MCV 90 MCH 31.1 MCHC 34.5 RDW Std Deviation 45.5 H Plt Count 179 Neut % (Auto) 74 Lymph % (Auto) 17 [place] % (Auto) 8 Eos % (Auto) 0 Baso % (Auto) 0 Neut # (Auto) 7.5 Lymph # (Auto) 1.7 [place] # (Auto) 0.8 Eos # (Auto) 0.0 Baso # (Auto) 0.0 Immature Gran # (Auto) 0.04 H Absolute Nucleated RBC 0.00 Immature Gran % 0 Nucleated RBC % 0 PT INR Sodium 141 141 Potassium 4.8 4.7 Chloride 110 H 110 H Carbon Dioxide 22.0 25.9 Anion Gap 9 5 L BUN 45 H 44 H Creatinine 1.2 1.3 Estim Creat Clear Calc 52.4 L 48.4 L eGFR > 60 59 L BUN/Creatinine Ratio 38 H 34 H Glucose 136 H D [address] Glu mg/dL 148 H Hemoglobin A1c 6.8 H Calculated Osmolality 294 293 Lactic Acid 1.1 Calcium 8.0 L 8.1 L Corrected Calcium 8.6 Phosphorus Magnesium Total Bilirubin 0.7 AST < 10 ALT 8 L Alkaline Phosphatase 58 B-Natriuretic Peptide Total Protein 5.5 L Albumin 3.2 L Globulin 2.3 Albumin/Globulin Ratio 1.4 Triglycerides 69 Cholesterol 76 L LDL Cholesterol, Calc 37 HDL Cholesterol 25 L Cholesterol/HDL Ratio 3.0 L Procalcitonin Ur Collection Type Clean Catch Urine Color Lt-Yellow Urine Clarity Clear Urine pH 6.0 Ur Specific [place] 1.024 Urine Protein Trace Urine Glucose (UA) Negative Urine Ketones Negative Urine Blood 1+ A Urine Nitrite Negative Urine Bilirubin Negative Urine Urobilinogen (Auto) Negative Ur Leukocyte Esterase Positive Urine RBC 6 H Urine WBC 45 H Ur Squamous Epith Cells 2 Urine Bacteria None Blood Type Antibody Screen Crossmatch Blood Bank Wristband ID Quality Measures Quality Measures none Advance care planning discussed with:: patient Assessment & Plan Assessment Current Active Medications: Generic Name Dose Route Start Last Admin Trade Name Freq PRN Reason Stop Dose Admin Acetaminophen 650 mg 07/17/24 06:34 Acetaminophen 325 Mg Tablet PO 08/16/24 05:15 Q6H PRN Fever >100.4 or Pain Finasteride 5 mg 07/17/24 09:00 07/17/24 09:26 Finasteride 5 Mg Tablet PO 08/16/24 08:59 Not Given QDAY [facility] Piperacillin/Tazobactam/Dextrose 3.375 gm in 50 mls @ 12.5 mls/hr 07/17/24 14:00 Zosyn IV 07/24/24 13:59 Q8HR [facility] Protocol Ondansetron HCl 4 mg 07/17/24 05:16 Ondansetron Inj 2 Mg/Ml Inj 2 Ml IV 08/16/24 05:15 Q6H PRN NAUSEA OR VOMITING Protocol Pantoprazole Sodium 40 mg 07/17/24 21:00 Pantoprazole Inj 40 Mg Vial IVP 08/16/24 20:59 BID HAL Tamsulosin HCl 0.4 mg 07/17/24 09:00 07/17/24 09:17 Tamsulosin Hcl 0.4 Mg Capsule PO 08/16/24 08:59 0.4 mg QDAY HAL Administration Plan In summary: 68-year-old male PMHx of developmental delay, RCC s/p right nephrectomy 2016, hydrocelectomy, BPH, DM, left inguinal hernia repair, left hydrocele presenting with bright blood per rectum. Admitted for acute anemia and GI bleed workup. Appreciate recommendations from GI. Acute blood loss anemia UGIB vs. LGIB DDx: Hemorrhoids, diverticular bleed, AVMs, bleeding ulcers, malignancy. Presenting after episode of kat blood in the toilet. No abdominal pain, fever or other GI complaints. Admission Hgb 10.9, received 1 unit RBCs. Currently Hgb 10.7. No coagulopathies. CT showed gallstones, distended gallbladder, possible acute cholecystitis, mild colitis, small hiatal hernia, possible cystitis. ? Continue n.p.o. ? Continue PROTONIX 40 mg BID ? Transfuse if Hgb less than 7. ? N.p.o. ? Pending GI recommendations Lactic acidosis, type B (resolved) 3/4 SIRS positive (resolved) Presented with tachycardia, tachypnea and leukocytosis, lactic acid 2.9.likely reactive in settings of acute GI bleed. Resolved with resuscitation. ? Continue to monitor Prerenal JOLIE Mild hyperkalemia In settings of acute blood loss, volume depletion. On admission, CR 1.6, potassium 5.2. Resolved after volume resuscitation. ? Renally dose meds, avoid overdiuresis and NEPHROTOXINS ? Daily CMP Hypertension Currently normotensive ? Holding home LISINOPRIL 10 mg daily in settings of JOLIE and volume depletion Diabetes mellitus Last known A1c is 6.2 in 2021 ? Pending A1c ? Accu-Cheks ? INSULIN sliding scale BPH ? Continued home TAMSULOSIN 0.4 mg daily ? Continued home FINASTERIDE 5 mg daily Health maintenance Diet: NPO GI prophylaxis: PROTONIX BID DVT prophylaxis: SCDs Antibiotics: Not indicated CODE STATUS: Full code Disposition: Pending GI recommendations. Patient case was discussed with attending, Dr. Clay Villagomez MD and senior residents Dr. Simons and Dr. Mccoy. Carmel Calhoun, DO PGYI Senior Resident Attestation: The patient reported doing well. He is verbally limited with few words at baseline. His vitals and labs were fairly stable. He received 1 unit PRBC in the ED, and his post H&H was 10.4. He is being managed for acute blood loss anemia 2/2 UGI Vs LGI bleed. GI Dr. Gibbs started him on golytely as his CT abd was significant for rectal sigmoid wall thickening concerning for bleeding from that region. Prerenal JOLIE 2/2 blood loss has been improving and we will f/u on further GI reccs. We will continue to monitor his H&H. I discussed with and supervised the internal grinder set up operator physician involved in the care of this patient. I personally saw and examined the patient and discussed the assessment and plan with the entire medicine team, including my attending. I agree with the assessment and plan as documented above. Chandu Mccoy MD PGY2 Internal Medicine
--- NOTE | 2024-07-17 17:37 | PC.NURSE ---
Pt changed prior to being trnasferred upstairs, pt did not have any bm, pt uses urinal. bedding also changed. pt transferred upstairs by this RN and fellow HOT IRON WORKER with no issue. Staff at bedside to assume care.
--- NOTE | 2024-07-17 17:54 | PC.NURSE ---
PATIENT ARRIVED ON THE FLOOR AT 1727. RECEIVED REPORT FROM SHANE MORSE.
--- NOTE | 2024-07-17 18:44 | PC.NURSE ---
WILL HAND OFF REPORT TO SENIOR SAFETY MANAGEMENT CONSULTANT NURSE FULL ADMIT FOR JACOBY MORSE
--- NOTE | 2024-07-17 20:07 | ESCONSULT_ITS ---
HPI Data of Consult Requesting Physician: Clay Villagomez MD Primary Care Provider: Paul Momin MD Consult Narrative Reason for consult: Hematochezia, abnormal CTAP History of present illness: 68 years old male evaluated at the request of the internal medicine team and the ER physician Patient was brought from a senior living with an episode of bleeding per rectum And when the diaper was taken off there was bright red blood Patient initial hemoglobin hematocrit 10.9 and 33.3 which is gone down to 10.4 and 31.3 on a repeat BUN/creatinine is [address] scan of the abdomen pelvis without contrast showed cholelithiasis fatty liver and rectal sigmoid wall thickening with inflammatory changes No history obtained from the patient Patient has developmental delay history of hypertension diabetes mellitus type 2 BPH gastroesophageal for disease cc:: cc: Clay Villagomez MD Review of Systems Review of Systems ROS Unobtainable: unobtainable due to medical condition Past Medical History Surgical History OTHER SURGICAL HX: As in the history of present illness Meds Home Medications and Allergies Home Medications ?Medication ?Instructions ?Recorded ?Confirmed ?Type tamsulosin 0.4 mg capsule (Flomax) 0.4 mg PO QDAY ##0 10/05/15 07/17/24 History metformin 500 mg tablet 500 mg PO BID #0 tabs 01/30/16 07/17/24 History (Glucophage) nitrofurantoin macrocrystal 50 mg 50 mg PO QDAY 08/27/18 07/17/24 History capsule lisinopril 10 mg tablet 10 mg PO QDAY 11/22/19 07/17/24 History atorvastatin 20 mg tablet 1 tab PO QDAY 12/25/21 07/17/24 History docusate sodium 250 mg capsule 1 cap PO BID 12/25/21 07/17/24 History finasteride 5 mg tablet 5 mg PO QDAY 12/25/21 07/17/24 History Allergies Allergy/AdvReac Type Severity Reaction Status Date / Time ibuprofen Allergy unknown Verified 02/08/23 12:09 Exam Vital Signs Temp Pulse Resp BP Pulse Ox O2 Del Method 97.4 F 84 16 113/71 94 L Room Air 07/17/24 17:56 07/17/24 17:56 07/17/24 17:56 07/17/24 17:56 07/17/24 17:56 07/17/24 17:56 Routine Respiratory Exam Comments: Normal to auscultation Routine Abdominal Exam Comments: Soft nontender Results Labs 07/17/24 12:00 07/17/24 12:00 Labs: Short CBC 07/17/24 07/17/24 07/17/24 Range/Units 01:10 07:33 12:00 WBC 16.3 H 10.1 D (3.8-10.6) Thou/mm3 Hgb 10.9 L 10.7 L 10.4 L (13.5-16.0) g/dL Hct 33.3 L 31.0 L 31.3 L (41.0-53.0) % Plt Count 196 179 (140-440) Thou/mm3 BMP 07/17/24 07/17/24 07/17/24 01:10 07:33 12:00 Sodium 141 141 141 Potassium 5.2 H 4.8 4.7 Chloride 109 H 110 H 110 H Carbon Dioxide 24.2 22.0 25.9 BUN 47 H 45 H 44 H Creatinine 1.6 H 1.2 1.3 Glucose 191 H 136 H D 111 H Calcium 8.6 8.0 L 8.1 L Liver Function 07/17/24 07/17/24 Range/Units 01:10 07:33 Total Bilirubin 0.5 0.7 (0.3-1.2) mg/dL AST 11 < 10 (0-34) U/L ALT 9 L 8 L (10-49) U/L Alkaline Phosphatase 60 58 (46-116) U/L Albumin 3.3 L 3.2 L (3.4-4.8) gm/dL Urine 07/17/24 Range/Units 04:33 Urine Color Lt-Yellow (Lt Yel-Yel) Urine Clarity Clear (Clear/Hazy) Urine pH 6.0 (5.0-7.0) Ur Specific [place] 1.024 (1.001-1.035) Urine Protein Trace (Neg - Trace) Urine Glucose (UA) Negative (Negative) Assessment and Plan Additional Assessment & Plan Additional Plan: # Hematochezia # Abnormal CT scan of the abdomen pelvis without contrast showing changes in the region of the rectosigmoid Plan GoLytely prep Once patient is clear consider fiberoptic colonoscopy with possible biopsies possible therapeutic intervention Other medical problems include # Developmental delay # Diabetes mellitus type 2 # Essential hypertension Thank you once again for the opportunity to participate in the care of this patient
[2024-07-17] MEDS: PANTOPRAZOLE INJ 40 MG VIAL IVP (21:36)
[2024-07-17] MEDS: NA SU/NAHCO3/KC/PEG (Golytely) 4,000 ML BTL 4000 ML PO (23:41)
[2024-07-18] VITALS (7 sets, daily range): BP systolic 116–146; BP diastolic 69–90; PULSE 66–91; RESP 17–20; TEMP 36.1–37.2; O2SAT 93–97
[2024-07-18 05:19] LABS: Basophils % (Auto) 0 % (0-2.5); Eosinophils # (Auto) 0.3 Thou/mm3 (0.0-0.5); Eosinophils % (Auto) 3 % (0-10); Hematocrit 30.4 % (41.0-53.0); Hemoglobin 10.2 g/dL (13.5-16.0); Immature Granulocytes % (Auto) 0 % (0-0); Immature Granulocytes Auto 0.02 Thou/mm3 (0.00-0.00); Lymphocytes # (Auto) 2.1 Thou/mm3 (1.0-4.8); Lymphocytes % (Auto) 25 % (10-50); Mean Corpuscular HGB Conc 33.6 g/dl (31.0-37.0); Mean Corpuscular Hemoglobin 30.4 pg (25.0-35.0); Mean Corpuscular Volume 91 fL (80-100); Monocytes # (Auto) 0.6 Thou/mm3 (0.0-0.8); Monocytes % (Auto) 7 % (0-12); Neutrophils # (Auto) 5.3 Thou/mm3 (1.8-7.7); Neutrophils % (Auto) 64 % (37-80); Nucleated Red Blood Cell % 0 /100 WBC (0); Platelet Count 164 Thou/mm3 (140-440); RDW Standard Deviation 47.3 fL (35.1-43.9); Red Blood Count 3.36 Miln/mm3 (4.50-5.90); White Blood Count 8.4 Thou/mm3 (3.8-10.6)
[2024-07-18] MEDS: PIPER/TAZO 3.375 GM 3.375 GM/50 ML BAG IV ×3 (05:26→21:03)
[2024-07-18 06:38] LABS: Alanine Aminotransferase < 7 U/L (10-49); Albumin, Serum 3.3 gm/dL (3.4-4.8); Albumin/Globulin Ratio 1.4 (1.2-2.2); Alkaline Phosphatase 59 U/L (46-116); Anion Gap 7 (7-16); Aspartate Amino Transferase < 10 U/L (0-34); BUN/Creatinine Ratio 26 Ratio (12-20); Bilirubin,Total 1.1 mg/dL (0.3-1.2); Blood Urea Nitrogen 36 mg/dL (9-23); Calcium 8.6 mg/dL (8.3-10.6); Calcium (Corrected) 9.2 mg/dL (8.5-10.1); Chloride 110 mMol/L (98-107); Creatinine (Component) 1.4 mg/dL (0.6-1.3); Estimated Creatinine Clearance 49.1 mL/min (>60); Globulin 2.4 gm/dL (2.3-3.5); Glucose 109 mg/dL (74-106); Magnesium 1.8 mg/dL (1.6-2.6); Osmolality,Calculated 290 (275-295); Phosphorous 2.5 mg/dL (2.4-5.1); Potassium 4.4 mMol/L (3.4-5.1); Sodium 141 mMol/L (136-145); Thyroid Stimulating Hormone 3.17 uIU/mL (0.55-4.78); Total Protein 5.7 gm/dL (5.7-8.2); eGFR 54 See Note
--- NOTE | 2024-07-18 09:27 | ESPR_ITS ---
<Statement entered by Clay Villagomez MD - 07/24/24 15:03> I reviewed above note and agree with findings and plans. I have also personally examined the patient with medicine team and went over assessment and plan with medical team including technology intern and resident physician. Documentation for date of: 07/18/24 Subjective Subjective Interval history: No overnight events. Appears at baseline. No signs of distress. Answering questions appropriately. Making small progress finishing his GOLYTELY. Nurse will consider NG tube if patient does not tolerate GOLYTELY. Denies fever, chills, headaches, chest pain, sob, cough, GI or urinary symptoms. Exam Vital Signs Temp Pulse Resp BP Pulse Ox O2 Del Method 98.3 F 74 17 116/69 94 L Room Air 07/18/24 08:00 07/18/24 08:00 07/18/24 08:00 07/18/24 08:00 07/18/24 08:00 07/18/24 08:00 Narrative Exam GENERAL * Normal appearing, no apparent distress. Able to answer simple questions. HEENT * NCAT.?MARLENE. Oral mucosa is moist. Patent Nares NECK * Supple, nontender, no thyromegaly, no meningismus, no JVD, no step offs CHEST * RRR, no m/g/r * CTAB, no w/r/r. Symmetrical chest rise. No intercostal subcostal retraction * Atraumatic, nontender, no crepitus, symmetrical expansion. ABDOMEN * Soft, flat, nontender. No guarding/rebound tenderness/masses. * Bowel sounds presents EXTREMITIES * Nontender, no cyanosis, no edema * No edema/cyanosis.? SKIN * Warm and dry, no jaundice/rashes. NEUROMUSCULAR * No lumbar or midline, no CVA, no paraspinal muscle spasm or tenderness. * Moves all 4 extremities well, with full ROM and good CSM. * VALDES x4, CN II-XII grossly intact. * No focal neurologic deficits. PSYCHIATRY * Normal mood and affect, cooperative, no SI or HI or hallucinations. Objective Labs 07/18/24 04:57 07/18/24 04:57 Labs: Laboratory Results - last 24 hr 07/17/24 07/18/24 12:00 04:57 WBC 8.4 RBC 3.36 L Hgb 10.4 L 10.2 L Hct 31.3 L 30.4 L MCV 91 MCH 30.4 MCHC 33.6 RDW Std Deviation 47.3 H Plt Count 164 Neut % (Auto) 64 Lymph % (Auto) 25 [place] % (Auto) 7 Eos % (Auto) 3 Baso % (Auto) 0 Neut # (Auto) 5.3 Lymph # (Auto) 2.1 [place] # (Auto) 0.6 Eos # (Auto) 0.3 Baso # (Auto) 0.0 Immature Gran # (Auto) 0.02 H Absolute Nucleated RBC 0.00 Immature Gran % 0 Nucleated RBC % 0 Sodium 141 141 Potassium 4.7 4.4 Chloride 110 H 110 H Carbon Dioxide 25.9 24.0 Anion Gap 5 L 7 BUN 44 H 36 H Creatinine 1.3 1.4 H Estim Creat Clear Calc 48.4 L 49.1 L eGFR 59 L 54 L BUN/Creatinine Ratio 34 H 26 H Glucose 111 H 109 H Calculated Osmolality 293 290 Calcium 8.1 L 8.6 Corrected Calcium 9.2 Phosphorus 2.5 Magnesium 1.8 Total Bilirubin 1.1 AST < 10 ALT < 7 L Alkaline Phosphatase 59 Total Protein 5.7 Albumin 3.3 L Globulin 2.4 Albumin/Globulin Ratio 1.4 TSH 3.17 Quality Measures Quality Measures none Advance care planning discussed with:: patient Assessment & Plan Assessment Current Active Medications: Generic Name Dose Route Start Last Admin Trade Name Freq PRN Reason Stop Dose Admin Acetaminophen 650 mg 07/17/24 06:34 Acetaminophen 325 Mg Tablet PO 08/16/24 05:15 Q6H PRN Fever >100.4 or Pain Dextrose 25 ml 07/17/24 16:28 Dextrose 50%-Water Inj 50 Ml Syringe IV 08/16/24 16:27 Q15MIN PRN BG 50-70 responsive npo pt Dextrose 50 ml 07/17/24 16:28 Dextrose 50%-Water Inj 50 Ml Syringe IV 08/16/24 16:27 Q15MIN PRN BG <50 OR BG <70 & pt unresponsive Finasteride 5 mg 07/17/24 09:00 07/17/24 09:26 Finasteride 5 Mg Tablet PO 08/16/24 08:59 Not Given QDAY HAL Glucagon 1 mg 07/17/24 16:28 Glucagon Inj 1 Mg Vial IM Q15MIN PRN BG <70, and no IV access Piperacillin/Tazobactam/Dextrose 3.375 gm in 50 mls @ 12.5 mls/hr 07/17/24 14:00 07/18/24 05:26 Zosyn IV 07/24/24 13:59 12.5 mls/hr Q8HR HAL Administration Protocol Insulin Human Lispro 0 unit 07/17/24 17:00 07/18/24 07:45 Insulin Lispro (Admelog) 1 Unit/0.01 Ml Unit SC 08/16/24 16:59 Not Given AC HAL Protocol Ondansetron HCl 4 mg 07/17/24 05:16 Ondansetron Inj 2 Mg/Ml Inj 2 Ml IV 08/16/24 05:15 Q6H PRN NAUSEA OR VOMITING Protocol Pantoprazole Sodium 40 mg 07/17/24 21:00 07/17/24 21:36 Pantoprazole Inj 40 Mg Vial IVP 08/16/24 20:59 40 mg BID HAL Administration Tamsulosin HCl 0.4 mg 07/17/24 09:00 07/17/24 09:17 Tamsulosin Hcl 0.4 Mg Capsule PO 08/16/24 08:59 0.4 mg QDAY HAL Administration Plan In summary: 68-year-old male PMHx of developmental delay, RCC s/p right nephrectomy 2015, hydrocelectomy, BPH, DM, left inguinal hernia repair, left hydrocele presenting with bright blood per rectum. Admitted for acute anemia and GI bleed workup. Appreciate recommendations from GI. Acute blood loss anemia (stable) UGIB vs. LGIB DDx: Hemorrhoids, diverticular bleed, AVMs, bleeding ulcers, malignancy. Presenting after episode of kat blood in the toilet. No abdominal pain, fever or other GI complaints. Admission Hgb 10.9, received 1 unit RBCs. Currently Hgb 10.7. No coagulopathies. CT showed gallstones, distended gallbladder, possible acute cholecystitis, mild colitis, small hiatal hernia, possible cystitis. ? Continue n.p.o. and GOLYTELY ? Continue PROTONIX 40 mg BID ? Transfuse if Hgb less than 7. ? Pending colonoscopy with GI. Lactic acidosis, type B (resolved) 3/4 SIRS positive (resolved) Presented with tachycardia, tachypnea and leukocytosis, lactic acid 2.9.likely reactive in settings of acute GI bleed. Resolved with resuscitation. ? Continue to monitor Prerenal JOLIE Mild hyperkalemia In settings of acute blood loss, volume depletion. On admission, CR 1.6, potassium 5.2. Completed 1.75 L fluid. Potassium normal. Creatinine 1.2 then 1.4 today. ? Gave 250 NS bolus. ? Started NS at 75 cc/h ? Renally dose meds, avoid overdiuresis and NEPHROTOXINS ? Daily CMP Hypertension Currently normotensive ? Holding home LISINOPRIL 10 mg daily in settings of JOLIE and volume depletion Diabetes mellitus A1c 6.8 ? Monitor BMP BPH ? Continued home TAMSULOSIN 0.4 mg daily ? Continued home FINASTERIDE 5 mg daily Health maintenance Diet: NPO GI prophylaxis: PROTONIX BID DVT prophylaxis: SCDs Antibiotics: Not indicated CODE STATUS: Full code Disposition: Pending GI recommendations. Patient case was discussed with attending, Dr. Clay Villagomez MD and senior residents Dr. Simons and Dr. Mccoy. Carmel Calhoun, DO PGYI Senior Resident Attestation: The patient reported doing well. He is verbally limited with few words at baseline. His vitals and labs were fairly stable. He is being managed for acute blood loss anemia 2/2 UGI Vs LGI bleed. GI Dr. Gibbs started him on golytely as his CT abd was significant for rectal sigmoid wall thickening concerning for bleeding from that region. Prerenal JOLIE 2/2 blood loss has been improving and we will f/u on further GI reccs. We will continue to monitor his H&H. I discussed with and supervised the technology intern physician involved in the care of this patient. I personally saw and examined the patient and discussed the assessment and plan with the entire medicine team, including my attending. I agree with the assessment and plan as documented above. Chandu Mccoy MD PGY2 Internal Medicine
[2024-07-18] MEDS: PANTOPRAZOLE INJ 40 MG VIAL IVP ×2 (10:13→21:03)
[2024-07-18] MEDS: FINASTERIDE 5 MG TABLET PO (10:13)
[2024-07-18] MEDS: SODIUM CHLORIDE 0.9% 250 ML 250 ML 999 ML IV (10:18)
[2024-07-18] MEDS: SODIUM CHLORIDE 0.45 % 1,000 ML 75 ML IV ×2 (10:18→20:05)
--- NOTE | 2024-07-18 15:49 | PD.IMPROG ---
Documentation for date of: 07/18/24 Subjective Subjective Interval history: Patient extremely uncooperative taking the GoLytely Discussed the case with the attending RN 12 Lacho APONTE and give the GoLytely at 400 cc an hour Reschedule the colonoscopy when the patient is clear Exam Vital Signs Temp Pulse Resp BP Pulse Ox O2 Del Method 97 F 83 18 141/89 H 96 Room Air 07/18/24 12:00 07/18/24 12:00 07/18/24 12:00 07/18/24 12:00 07/18/24 12:00 07/18/24 12:00 Constitutional Comments: Lying comfortably in bed in no pain Routine Respiratory Exam Comments: Normal to auscultation Routine Abdominal Exam Comments: Soft nontender Objective Labs 07/18/24 04:57 07/18/24 04:57 Labs: Laboratory Results - last 24 hr 07/18/24 04:57 WBC 8.4 RBC 3.36 L Hgb 10.2 L Hct 30.4 L MCV 91 MCH 30.4 MCHC 33.6 RDW Std Deviation 47.3 H Plt Count 164 Neut % (Auto) 64 Lymph % (Auto) 25 [place] % (Auto) 7 Eos % (Auto) 3 Baso % (Auto) 0 Neut # (Auto) 5.3 Lymph # (Auto) 2.1 [place] # (Auto) 0.6 Eos # (Auto) 0.3 Baso # (Auto) 0.0 Immature Gran # (Auto) 0.02 H Absolute Nucleated RBC 0.00 Immature Gran % 0 Nucleated RBC % 0 Sodium 141 Potassium 4.4 Chloride 110 H Carbon Dioxide 24.0 Anion Gap 7 BUN 36 H Creatinine 1.4 H Estim Creat Clear Calc 49.1 L eGFR 54 L BUN/Creatinine Ratio 26 H Glucose 109 H Calculated Osmolality 290 Calcium 8.6 Corrected Calcium 9.2 Phosphorus 2.5 Magnesium 1.8 Total Bilirubin 1.1 AST < 10 ALT < 7 L Alkaline Phosphatase 59 Total Protein 5.7 Albumin 3.3 L Globulin 2.4 Albumin/Globulin Ratio 1.4 TSH 3.17 Impressions Impression: # Hematochezia # Abnormal CT scan of the abdomen pelvis As under HPI Assessment & Plan A&P Narrative # Hematochezia # Abnormal CT scan of the abdomen pelvis without contrast showing changes in the region of the rectosigmoid Plan GoLytely prep Once patient is clear consider fiberoptic colonoscopy with possible biopsies possible therapeutic intervention Other medical problems include # Developmental delay # Diabetes mellitus type 2 # Essential hypertension Thank you once again for the opportunity to participate in the care of this patient Time Spent With Patient Time: Total time spent is greater than 50% in coordination of care (as documented) at patient's floor/unit and/or counseling patient:
[2024-07-18 19:09] LABS: Hematocrit 28.4 % (41.0-53.0); Hemoglobin 9.5 g/dL (13.5-16.0)
[2024-07-19] VITALS (7 sets, daily range): BP systolic 115–154; BP diastolic 61–91; PULSE 63–107; RESP 16–21; TEMP 36.4–36.9; O2SAT 95–98
[2024-07-19 05:30] LABS: Basophils % (Auto) 1 % (0-2.5); Eosinophils # (Auto) 0.3 Thou/mm3 (0.0-0.5); Eosinophils % (Auto) 4 % (0-10); Hematocrit 28.1 % (41.0-53.0); Hemoglobin 9.4 g/dL (13.5-16.0); Immature Granulocytes % (Auto) 0 % (0-0); Immature Granulocytes Auto 0.03 Thou/mm3 (0.00-0.00); Lymphocytes # (Auto) 2.8 Thou/mm3 (1.0-4.8); Lymphocytes % (Auto) 33 % (10-50); Mean Corpuscular HGB Conc 33.5 g/dl (31.0-37.0); Mean Corpuscular Hemoglobin 30.8 pg (25.0-35.0); Mean Corpuscular Volume 92 fL (80-100); Monocytes # (Auto) 0.8 Thou/mm3 (0.0-0.8); Monocytes % (Auto) 9 % (0-12); Neutrophils # (Auto) 4.6 Thou/mm3 (1.8-7.7); Neutrophils % (Auto) 53 % (37-80); Nucleated Red Blood Cell % 0 /100 WBC (0); Platelet Count 179 Thou/mm3 (140-440); RDW Standard Deviation 47.3 fL (35.1-43.9); Red Blood Count 3.05 Miln/mm3 (4.50-5.90); White Blood Count 8.6 Thou/mm3 (3.8-10.6)
[2024-07-19] MEDS: PIPER/TAZO 3.375 GM 3.375 GM/50 ML BAG IV (05:31)
[2024-07-19 06:29] LABS: Alanine Aminotransferase < 7 U/L (10-49); Albumin, Serum 3.3 gm/dL (3.4-4.8); Albumin/Globulin Ratio 1.4 (1.2-2.2); Alkaline Phosphatase 58 U/L (46-116); Anion Gap 9 (7-16); Aspartate Amino Transferase < 8 U/L (0-34); BUN/Creatinine Ratio 19 Ratio (12-20); Bilirubin,Total 0.8 mg/dL (0.3-1.2); Blood Urea Nitrogen 28 mg/dL (9-23); Calcium 8.5 mg/dL (8.3-10.6); Calcium (Corrected) 9.1 mg/dL (8.5-10.1); Chloride 107 mMol/L (98-107); Creatinine (Component) 1.5 mg/dL (0.6-1.3); Estimated Creatinine Clearance 45.8 mL/min (>60); Globulin 2.3 gm/dL (2.3-3.5); Glucose 105 mg/dL (74-106); Magnesium 1.8 mg/dL (1.6-2.6); Osmolality,Calculated 288 (275-295); Phosphorous 2.5 mg/dL (2.4-5.1); Potassium 3.9 mMol/L (3.4-5.1); Sodium 142 mMol/L (136-145); Total Protein 5.6 gm/dL (5.7-8.2); eGFR 50 See Note
[2024-07-19] MEDS: FINASTERIDE 5 MG TABLET PO (09:35)
[2024-07-19] MEDS: PANTOPRAZOLE INJ 40 MG VIAL IVP ×2 (09:35→20:23)
[2024-07-19] MEDS: TAMSULOSIN HCL 0.4 MG CAPSULE PO (09:35)
[2024-07-19] MEDS: SODIUM CHLORIDE 0.45 % 1,000 ML 100 ML IV ×2 (11:20→23:30)
--- NOTE | 2024-07-19 12:35 | PD.IMPROG ---
Documentation for date of: 07/19/24 Subjective Subjective Interval history: Patient was scheduled for colonoscopy but he is not clear NGT be in place, there is the only way he can get the GoLytely Exam Vital Signs Temp Pulse Resp BP Pulse Ox O2 Del Method 98.2 F 81 17 115/64 96 Room Air 07/19/24 08:00 07/19/24 11:40 07/19/24 08:00 07/19/24 08:00 07/19/24 08:00 07/19/24 08:00 Objective Labs 07/19/24 04:34 07/19/24 04:34 Labs: Laboratory Results - last 24 hr 07/18/24 07/19/24 18:52 04:34 WBC 8.6 RBC 3.05 L Hgb 9.5 L 9.4 L Hct 28.4 L 28.1 L MCV 92 MCH 30.8 MCHC 33.5 RDW Std Deviation 47.3 H Plt Count 179 Neut % (Auto) 53 Lymph % (Auto) 33 [place] % (Auto) 9 Eos % (Auto) 4 Baso % (Auto) 1 Neut # (Auto) 4.6 Lymph # (Auto) 2.8 [place] # (Auto) 0.8 Eos # (Auto) 0.3 Baso # (Auto) 0.0 Immature Gran # (Auto) 0.03 H Absolute Nucleated RBC 0.00 Immature Gran % 0 Nucleated RBC % 0 Sodium 142 Potassium 3.9 D Chloride 107 Carbon Dioxide 26.0 Anion Gap 9 BUN 28 H Creatinine 1.5 H Estim Creat Clear Calc 45.8 L eGFR 50 L BUN/Creatinine Ratio 19 Glucose 105 Calculated Osmolality 288 Calcium 8.5 Corrected Calcium 9.1 Phosphorus 2.5 Magnesium 1.8 Total Bilirubin 0.8 AST < 8 ALT < 7 L Alkaline Phosphatase 58 Total Protein 5.6 L Albumin 3.3 L Globulin 2.3 Albumin/Globulin Ratio 1.4 Impressions Impression: # Hemorrhagic anemia Try to get the GoLytely going so we can clean the colon and do the colonoscopy Assessment & Plan A&P Narrative # Hematochezia # Abnormal CT scan of the abdomen pelvis without contrast showing changes in the region of the rectosigmoid Plan GoLytely prep Once patient is clear consider fiberoptic colonoscopy with possible biopsies possible therapeutic intervention Other medical problems include # Developmental delay # Diabetes mellitus type 2 # Essential hypertension Thank you once again for the opportunity to participate in the care of this patient Time Spent With Patient Time: Total time spent is greater than 50% in coordination of care (as documented) at patient's floor/unit and/or counseling patient:
--- NOTE | 2024-07-19 12:51 | XR_ITS ---
Examination: Abdomen AP single view Technique: AP portable supine abdomen, single view Exam date and time: July 19, 2024 1305 hrs. Indications: Post orogastric tube placement Findings: Orogastric tube sidehole is just beyond the GE junction, advance the orogastric tube 5 cm Multiple calcified gallstones Moderate air and stool throughout the colon, mildly air distended small bowel loops Heavy abdominal aortic calcification No free air Healed right hip fracture Impression: Advance the orogastric tube 5 cm
--- NOTE | 2024-07-19 13:57 | XR_ITS ---
Examination: Abdomen AP single view Technique: AP portable supine abdomen, single view Exam date and time: July 19, 2024 1440 hrs. Indications: Status post reposition orogastric tube Findings: Orogastric tube in the body the stomach satisfactory position Moderate colonic ileus Mild small bowel ileus Multiple gallstones Prominent osteopenia Impression: Orogastric tube body of the stomach satisfactory position
[2024-07-19] MEDS: NA SU/NAHCO3/KC/PEG (Golytely) 4,000 ML BTL 4000 ML PO (13:59)
--- NOTE | 2024-07-19 14:42 | ESPR_ITS ---
Documentation for date of: 07/19/24 Subjective Subjective Interval history: Patient was examined bedside this morning, he has not finished his GoLytely. Will put NG tube and continue the GoLytely. Pending colonoscopy Exam Vital Signs Temp Pulse Resp BP Pulse Ox O2 Del Method 97.6 F 81 17 136/79 H 96 Room Air 07/19/24 12:00 07/19/24 12:00 07/19/24 12:00 07/19/24 12:00 07/19/24 12:00 07/19/24 12:00 Narrative Exam GENERAL: Comfortable adult seen resting comfortably in hospital bed, no acute distress, developmental delay , just able to answer simple questions VITALS: All vitals were reviewed and the pulse ox is 98% on room air HEENT: Normocephalic, atraumatic. Pupils are equal and reactive. Oral mucosa is moist. NECK: Supple, nontender, no JVD CHEST: Symmetrical, atraumatic and with equal expansion ,Nontender on palpation CARDIOVASCULAR: Heart regular rhythm & rate. S1/S2. no murmur or gallop rub or extra beats. LUNGS: Clear to auscultation bilaterally with symmetrical chest rise. No laboring tachypnea or wheezing. No intercostal subcostal retraction. No rales and no rhonchi. ABDOMEN: Soft, flat, nontender to palpation, no guarding or rebound tenderness. Active and normal bowel sounds. EXTREMITIES:Moves all 4 extremities,No B/L LE edema. SKIN: Warm and dry, no jaundice or rashes noted. NEURO:, Cranial nerves II through XII grossly intact. There is no focal neurologic deficits noted. PSYCHIATRIC: Unable to take proper psych examination Objective Labs 07/19/24 04:34 07/19/24 04:34 Labs: Laboratory Results - last 24 hr 07/18/24 07/19/24 18:52 04:34 WBC 8.6 RBC 3.05 L Hgb 9.5 L 9.4 L Hct 28.4 L 28.1 L MCV 92 MCH 30.8 MCHC 33.5 RDW Std Deviation 47.3 H Plt Count 179 Neut % (Auto) 53 Lymph % (Auto) 33 Donley % (Auto) 9 Eos % (Auto) 4 Baso % (Auto) 1 Neut # (Auto) 4.6 Lymph # (Auto) 2.8 Donley # (Auto) 0.8 Eos # (Auto) 0.3 Baso # (Auto) 0.0 Immature Gran # (Auto) 0.03 H Absolute Nucleated RBC 0.00 Immature Gran % 0 Nucleated RBC % 0 Sodium 142 Potassium 3.9 D Chloride 107 Carbon Dioxide 26.0 Anion Gap 9 BUN 28 H Creatinine 1.5 H Estim Creat Clear Calc 45.8 L eGFR 50 L BUN/Creatinine Ratio 19 Glucose 105 Calculated Osmolality 288 Calcium 8.5 Corrected Calcium 9.1 Phosphorus 2.5 Magnesium 1.8 Total Bilirubin 0.8 AST < 8 ALT < 7 L Alkaline Phosphatase 58 Total Protein 5.6 L Albumin 3.3 L Globulin 2.3 Albumin/Globulin Ratio 1.4 Quality Measures Quality Measures none Advance care planning discussed with:: patient Assessment & Plan Assessment Current Active Medications: Generic Name Dose Route Start Last Admin Trade Name Freq PRN Reason Stop Dose Admin Acetaminophen 650 mg 07/18/24 13:31 Acetaminophen 325 Mg Tablet PO 08/16/24 05:15 Q6H PRN Fever >100.3 or Pain Finasteride 5 mg 07/17/24 09:00 07/19/24 09:35 Finasteride 5 Mg Tablet PO 08/16/24 08:59 5 mg QDAY HAL Administration Sodium Chloride 1,000 mls @ 100 mls/hr 07/19/24 10:49 07/19/24 11:20 Ns 0.45% IV 07/20/24 10:48 100 mls/hr .Q10H HAL Administration Ondansetron HCl 4 mg 07/17/24 05:16 Ondansetron Inj 2 Mg/Ml Inj 2 Ml IV 08/16/24 05:15 Q6H PRN NAUSEA OR VOMITING Protocol Pantoprazole Sodium 40 mg 07/17/24 21:00 07/19/24 09:35 Pantoprazole Inj 40 Mg Vial IVP 08/16/24 20:59 40 mg BID HAL Administration Tamsulosin HCl 0.4 mg 07/17/24 09:00 07/19/24 09:35 Tamsulosin Hcl 0.4 Mg Capsule PO 08/16/24 08:59 0.4 mg QDAY HAL Administration Plan 68-year-old male PMHx of developmental delay, RCC s/p right nephrectomy 2016, hydrocelectomy, BPH, DM, left inguinal hernia repair, left hydrocele presenting with bright blood per rectum. Admitted for acute anemia and GI bleed workup. Acute blood loss anemia (stable) UGIB vs. LGIB DDx: Hemorrhoids, diverticular bleed, AVMs, bleeding ulcers, malignancy. Presenting after episode of kat blood in the toilet. No abdominal pain, fever or other GI complaints. Admission Hgb 10.9, received 1 unit RBCs. Currently Hgb 10.7. No coagulopathies. CT showed gallstones, distended gallbladder, possible acute cholecystitis, mild colitis, small hiatal hernia, possible cystitis. ? Continue n.p.o. and GOLYTELY ? Continue PROTONIX 40 mg BID ? Transfuse if Hgb less than 7. ? Pending colonoscopy with GI. -Will place NG tube to finish GoLytely Lactic acidosis, type B (resolved) 3/4 SIRS positive (resolved) Presented with tachycardia, tachypnea and leukocytosis, lactic acid 2.9.likely reactive in settings of acute GI bleed. Resolved with resuscitation. ? Continue to monitor Prerenal JOLIE Mild hyperkalemia-resolved In settings of acute blood loss, volume depletion. On admission, CR 1.6, potassium 5.2. today K-3.9 Completed 1.75 L fluid. Potassium normal. Creatinine 1.2 then 1.5 today. ? Gave 250 NS bolus. ? Started NS at 100cc/h ? Renally dose meds, avoid overdiuresis and NEPHROTOXINS ? Daily CMP Hypertension Currently normotensive ? Holding home LISINOPRIL 10 mg daily in settings of JOLIE and volume depletion Diabetes mellitus A1c 6.8 ? Monitor BMP BPH ? Continued home TAMSULOSIN 0.4 mg daily ? Continued home FINASTERIDE 5 mg daily Health maintenance Diet: NPO GI prophylaxis: PROTONIX BID DVT prophylaxis: SCDs Antibiotics: Not indicated CODE STATUS: Full code Disposition: Pending GI recommendations. Patient case was discussed with attending, MD Heide Hernandes, PGY-3
--- NOTE | 2024-07-19 18:59 | PC.NURSE ---
RN called Dr. pickett to inform him that the pt had a large BM this evening. The bm was a large amount of dark red blood. very little stool in the bm. Dr. Pickett ordered to continue with the goleytly at 400cc/hr through the NG tube. will continue to monitor. pt is stable at this time.
--- NOTE | 2024-07-19 22:03 | PC.NURSE ---
MD Sandoval made aware of pt having fresh blood on stool, pt is on Golytely. MD ordered to do Hemoglobin at this time and to stop golytely at this time.
[2024-07-19 22:44] LABS: Hematocrit 26.7 % (41.0-53.0)
--- NOTE | 2024-07-19 23:15 | PC.NURSE ---
MD Adan updated on hemoglobin result 9.0, ordered to re start golytely after and hour.
[2024-07-20] VITALS (22 sets, daily range): BP systolic 116–157; BP diastolic 65–96; PULSE 63–100; RESP 12–18; TEMP 36.4–37.2; O2SAT 93–100; BMI 27.8
[2024-07-20 05:56] LABS: Basophils % (Auto) 0 % (0-2.5); Eosinophils # (Auto) 0.3 Thou/mm3 (0.0-0.5); Eosinophils % (Auto) 4 % (0-10); Hemoglobin 8.9 g/dL (13.5-16.0); Immature Granulocytes % (Auto) 0 % (0-0); Immature Granulocytes Auto 0.02 Thou/mm3 (0.00-0.00); Lymphocytes # (Auto) 2.1 Thou/mm3 (1.0-4.8); Lymphocytes % (Auto) 28 % (10-50); Mean Corpuscular Hemoglobin 30.6 pg (25.0-35.0); Mean Corpuscular Volume 93 fL (80-100); Monocytes # (Auto) 0.6 Thou/mm3 (0.0-0.8); Monocytes % (Auto) 9 % (0-12); Neutrophils # (Auto) 4.5 Thou/mm3 (1.8-7.7); Neutrophils % (Auto) 59 % (37-80); Nucleated Red Blood Cell % 0 /100 WBC (0); Platelet Count 173 Thou/mm3 (140-440); RDW Standard Deviation 46.8 fL (35.1-43.9); Red Blood Count 2.91 Miln/mm3 (4.50-5.90); White Blood Count 7.6 Thou/mm3 (3.8-10.6)
[2024-07-20 06:32] LABS: Alanine Aminotransferase < 7 U/L (10-49); Albumin, Serum 3.2 gm/dL (3.4-4.8); Albumin/Globulin Ratio 1.5 (1.2-2.2); Alkaline Phosphatase 57 U/L (46-116); Anion Gap 10 (7-16); Aspartate Amino Transferase 13 U/L (0-34); BUN/Creatinine Ratio 13 Ratio (12-20); Bilirubin,Total 0.7 mg/dL (0.3-1.2); Blood Urea Nitrogen 15 mg/dL (9-23); Calcium 8.1 mg/dL (8.3-10.6); Calcium (Corrected) 8.7 mg/dL (8.5-10.1); Carbon Dioxide 23.9 mMol/L (20.0-31.0); Chloride 107 mMol/L (98-107); Creatinine (Component) 1.2 mg/dL (0.6-1.3); Estimated Creatinine Clearance 57.3 mL/min (>60); Globulin 2.2 gm/dL (2.3-3.5); Glucose 83 mg/dL (74-106); Magnesium 1.8 mg/dL (1.6-2.6); Osmolality,Calculated 281 (275-295); Phosphorous 2.1 mg/dL (2.4-5.1); Potassium 3.8 mMol/L (3.4-5.1); Sodium 141 mMol/L (136-145); Total Protein 5.4 gm/dL (5.7-8.2); eGFR > 60 See Note
--- NOTE | 2024-07-20 07:49 | ESPR_ITS ---
Documentation for date of: 07/20/24 Subjective Subjective Interval history: No acute overnight events. Appears little agitated 2/2 NG tube. Asked that NG tube be removed which we will removed today after completion of GOLYTELY. Denies fever, chills, headaches, chest pain, sob, cough, GI or urinary symptoms. Exam Vital Signs Temp Pulse Resp BP Pulse Ox O2 Del Method 97.6 F 68 16 155/75 H 97 Room Air 07/20/24 04:00 07/20/24 04:00 07/20/24 04:00 07/20/24 04:00 07/20/24 04:00 07/20/24 04:00 Narrative Exam GENERAL * Normal appearing, no apparent distress. Able to answer simple questions. HEENT * NCAT.?MARLENE. Oral mucosa is moist. Patent Nares NECK * Supple, nontender, no thyromegaly, no meningismus, no JVD, no step offs CHEST * RRR, no m/g/r * CTAB, no w/r/r. Symmetrical chest rise. No intercostal subcostal retraction * Atraumatic, nontender, no crepitus, symmetrical expansion. ABDOMEN * Soft, flat, nontender. No guarding/rebound tenderness/masses. * Bowel sounds presents EXTREMITIES * Nontender, no cyanosis, no edema * No edema/cyanosis.? SKIN * Warm and dry, no jaundice/rashes. NEUROMUSCULAR * No lumbar or midline, no CVA, no paraspinal muscle spasm or tenderness. * Moves all 4 extremities well, with full ROM and good CSM. * VALDES x4, CN II-XII grossly intact. * No focal neurologic deficits. PSYCHIATRY * Normal mood and affect, cooperative, no SI or HI or hallucinations. Objective Labs 07/20/24 05:12 07/20/24 05:12 Labs: Laboratory Results - last 24 hr 07/17/24 07/19/24 07/20/24 01:20 22:28 05:12 WBC 7.6 RBC 2.91 L Hgb 9.0 L 8.9 L Hct 26.7 L 27.0 L MCV 93 MCH 30.6 MCHC 33.0 RDW Std Deviation 46.8 H Plt Count 173 Neut % (Auto) 59 Lymph % (Auto) 28 Ritchie % (Auto) 9 Eos % (Auto) 4 Baso % (Auto) 0 Neut # (Auto) 4.5 Lymph # (Auto) 2.1 Ritchie # (Auto) 0.6 Eos # (Auto) 0.3 Baso # (Auto) 0.0 Immature Gran # (Auto) 0.02 H Absolute Nucleated RBC 0.00 Immature Gran % 0 Nucleated RBC % 0 Sodium 141 Potassium 3.8 Chloride 107 Carbon Dioxide 23.9 Anion Gap 10 BUN 15 Creatinine 1.2 Estim Creat Clear Calc 57.3 L eGFR > 60 BUN/Creatinine Ratio 13 Glucose 83 Calculated Osmolality 281 Calcium 8.1 L Corrected Calcium 8.7 Phosphorus 2.1 L Magnesium 1.8 Total Bilirubin 0.7 AST 13 ALT < 7 L Alkaline Phosphatase 57 Total Protein 5.4 L Albumin 3.2 L Globulin 2.2 L Albumin/Globulin Ratio 1.5 Crossmatch See Detail Quality Measures Quality Measures none Advance care planning discussed with:: patient Assessment & Plan Assessment Current Active Medications: Generic Name Dose Route Start Last Admin Trade Name Freq PRN Reason Stop Dose Admin Acetaminophen 650 mg 07/18/24 13:31 Acetaminophen 325 Mg Tablet PO 08/16/24 05:15 Q6H PRN Fever >100.3 or Pain Finasteride 5 mg 07/17/24 09:00 07/19/24 09:35 Finasteride 5 Mg Tablet PO 08/16/24 08:59 5 mg QDAY HAL Administration Sodium Chloride 1,000 mls @ 100 mls/hr 07/19/24 10:49 07/19/24 23:30 Ns 0.45% IV 07/20/24 10:48 100 mls/hr .Q10H HAL Administration Ondansetron HCl 4 mg 07/17/24 05:16 Ondansetron Inj 2 Mg/Ml Inj 2 Ml IV 08/16/24 05:15 Q6H PRN NAUSEA OR VOMITING Protocol Pantoprazole Sodium 40 mg 07/17/24 21:00 07/19/24 20:23 Pantoprazole Inj 40 Mg Vial IVP 08/16/24 20:59 40 mg BID HAL Administration Tamsulosin HCl 0.4 mg 07/17/24 09:00 07/19/24 09:35 Tamsulosin Hcl 0.4 Mg Capsule PO 08/16/24 08:59 0.4 mg QDAY HAL Administration Plan 68-year-old male PMHx of developmental delay, RCC s/p right nephrectomy 2016, hydrocelectomy, BPH, DM, left inguinal hernia repair, left hydrocele presenting with bright blood per rectum. Admitted for acute anemia and GI bleed workup. Completed GOLYTELY x 2 for colonoscopy later today. 07/20. Acute blood loss anemia (stable) UGIB vs. LGIB DDx: Hemorrhoids, diverticular bleed, AVMs, bleeding ulcers, malignancy. Presenting after episode of kat blood in the toilet. No abdominal pain, fever or other GI complaints. Admission Hgb 10.9, received 1 unit RBCs. Currently Hgb 10.7. No coagulopathies. CT showed gallstones, distended gallbladder, possible acute cholecystitis, mild colitis, small hiatal hernia, possible cystitis. Was unable to complete GOLYTELY orally, which was ordered through NG tube, removed today 07/20 as bowel was clear. ? Continue n.p.o. and GOLYTELY ? Continue PROTONIX 40 mg BID ? Transfuse if Hgb less than 7. ? Pending colonoscopy with GI. Lactic acidosis, type B (resolved) 3/4 SIRS positive (resolved) Presented with tachycardia, tachypnea and leukocytosis, lactic acid 2.9.likely reactive in settings of acute GI bleed. Resolved with resuscitation. ? Continue to monitor Prerenal JOLIE (resolved) Mild hyperkalemia ? resolved In settings of acute blood loss, volume depletion. CR 1.6 on admission, resolved with IV fluids. Potassium 5.2 on admission, resolved with fluids. ? Renally dose meds, avoid overdiuresis and NEPHROTOXINS ? Daily CMP Hypertension Currently normotensive ? Holding home LISINOPRIL 10 mg daily in settings of JOLIE and volume depletion Diabetes mellitus A1c 6.8 ? Monitor BMP BPH ? Continued home TAMSULOSIN 0.4 mg daily ? Continued home FINASTERIDE 5 mg daily Health maintenance Diet: NPO GI prophylaxis: PROTONIX BID DVT prophylaxis: SCDs Antibiotics: Not indicated CODE STATUS: Full code Disposition: Pending colonoscopy Patient case was discussed with attending, Dr. Clay Villagomez MD and senior residents Dr. Simons and Dr. Mccoy. Carmel Calhoun, DO PGYI Senior Resident Attestation: The patient reported doing well. He is verbally limited with few words at baseline. His vitals and labs were fairly stable. He is being managed for acute blood loss anemia 2/2 UGI Vs LGI bleed. GI Dr. Gibbs started him on golytely as his CT abd was significant for rectal sigmoid wall thickening concerning for bleeding from that region. He has finally been clear and we removed NG tube. Prerenal JOLIE 2/2 blood loss has improved and we will f/u on further GI reccs. We will continue to monitor his H&H. I discussed with and supervised the agriculture intern physician involved in the care of this patient. I personally saw and examined the patient and discussed the assessment and plan with the entire medicine team, including my attending. I agree with the assessment and plan as documented above. Chandu Mccoy MD PGY2 Internal Medicine
[2024-07-20] MEDS: PANTOPRAZOLE INJ 40 MG VIAL IVP ×2 (09:25→21:47)
[2024-07-20] MEDS: POTASSIUM PHOS 15 MMOL in SODIUM CHLORIDE 0.9% 250 ML 245 ML 62.5 MMOL IV (09:26)
[2024-07-20] MEDS: TAMSULOSIN HCL 0.4 MG CAPSULE PO (09:26)
[2024-07-20] MEDS: FINASTERIDE 5 MG TABLET PO (09:26)
--- NOTE | 2024-07-20 10:24 | PC.SS ---
Patient is devel. delayed. Patient admitted for gi bleed. 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 SS spoke to [place] @ [facility] and patient is on a bed hold. D/c plan is to return to facility. Patient's brother, Darius, is the decision maker and signs all consents. Patient is wheelchair bound and can ambulate very short distances w/assistance. Patient mumbles but speaks short words. PCP: Dr. Momin. Patient will need transportation upon discharge. Patient's brother, Darius, will need to be contacted for all decisions.
--- NOTE | 2024-07-20 19:11 | SUR.PHASEI ---
pt arrived to pacu via gurney drowsy but arouses to verbal commands, breathing unlabored, report from Carissa MORSE
--- NOTE | 2024-07-20 19:45 | SUR.PHASEI ---
pt drowsy but arouses to verbal commands, breathing unlabored, VS stable, pt meets discharge criteria from PACU, report called to Vj MORSE, pt transferred to room at this time.
[2024-07-21] VITALS: BP 113/59; PULSE 100; PULSE 60; RESP 17; TEMP 36.5; O2SAT 95
[2024-07-21 04:00] VITALS: BP 137/66; PULSE 84; RESP 18; TEMP 36.5; O2SAT 97
[2024-07-21 06:11] LABS: Basophils % (Auto) 0 % (0-2.5); Eosinophils # (Auto) 0.2 Thou/mm3 (0.0-0.5); Eosinophils % (Auto) 3 % (0-10); Hematocrit 26.9 % (41.0-53.0); Hemoglobin 8.9 g/dL (13.5-16.0); Immature Granulocytes % (Auto) 0 % (0-0); Immature Granulocytes Auto 0.02 Thou/mm3 (0.00-0.00); Lymphocytes # (Auto) 1.7 Thou/mm3 (1.0-4.8); Lymphocytes % (Auto) 22 % (10-50); Mean Corpuscular HGB Conc 33.1 g/dl (31.0-37.0); Mean Corpuscular Volume 94 fL (80-100); Monocytes # (Auto) 0.6 Thou/mm3 (0.0-0.8); Monocytes % (Auto) 8 % (0-12); Neutrophils # (Auto) 5.2 Thou/mm3 (1.8-7.7); Neutrophils % (Auto) 67 % (37-80); Nucleated Red Blood Cell % 0 /100 WBC (0); Platelet Count 175 Thou/mm3 (140-440); RDW Standard Deviation 47.4 fL (35.1-43.9); Red Blood Count 2.87 Miln/mm3 (4.50-5.90); White Blood Count 7.8 Thou/mm3 (3.8-10.6)
[2024-07-21] MEDS: DEXTROSE 50%-WATER INJ 50 ML SYRINGE IV (06:38)
[2024-07-21 07:09] LABS: Alanine Aminotransferase < 7 U/L (10-49); Albumin, Serum 3.2 gm/dL (3.4-4.8); Albumin/Globulin Ratio 1.5 (1.2-2.2); Alkaline Phosphatase 63 U/L (46-116); Anion Gap 11 (7-16); Aspartate Amino Transferase 13 U/L (0-34); BUN/Creatinine Ratio 11 Ratio (12-20); Bilirubin,Total 0.6 mg/dL (0.3-1.2); Blood Urea Nitrogen 12 mg/dL (9-23); Calcium 8.6 mg/dL (8.3-10.6); Calcium (Corrected) 9.2 mg/dL (8.5-10.1); Carbon Dioxide 23.9 mMol/L (20.0-31.0); Chloride 108 mMol/L (98-107); Creatinine (Component) 1.1 mg/dL (0.6-1.3); Estimated Creatinine Clearance 62.5 mL/min (>60); Globulin 2.2 gm/dL (2.3-3.5); Glucose 60 mg/dL (74-106); Magnesium 1.7 mg/dL (1.6-2.6); Osmolality,Calculated 282 (275-295); Phosphorous 2.5 mg/dL (2.4-5.1); Potassium 3.8 mMol/L (3.4-5.1); Sodium 143 mMol/L (136-145); Total Protein 5.4 gm/dL (5.7-8.2); eGFR > 60 See Note
[2024-07-21 08:00] VITALS: BP 135/80; PULSE 75; PULSE 96; RESP 18; TEMP 36.8; O2SAT 95
[2024-07-21] MEDS: PANTOPRAZOLE INJ 40 MG VIAL IVP (08:23)
[2024-07-21] MEDS: FINASTERIDE 5 MG TABLET PO (08:23)
[2024-07-21] MEDS: TAMSULOSIN HCL 0.4 MG CAPSULE PO (08:24)
[2024-07-21] MEDS: ferumoxytoL (NON-ESRD) 510 MG in SODIUM CHLORIDE 0.9% 100 ML 234 MG IV (10:30)
--- NOTE | 2024-07-21 11:45 | ESDS_ITS ---
Planned Discharge Date 07/21/24 DS: Providers Provider Date of admission: 07/17/24 05:16 Primary care physician: Paul Momin MD Admitting Provider: Clyde Landin MD Attending Provider on Admission: Clay Villagomez MD Consults: 07/17/24 03:52 Consult to Gastroenterology Routine Comment: Consulting Provider: León Gibbs 07/17/24 11:09 Consult to General Surgery Routine Comment: Consulting Provider: Gabriella Mancia Attending Provider on DC: Clay Villagomez MD Discharging Provider: Clay Villagomez MD DS: Diagnosis Problem List Completed Was Problem List Reviewed/Reconciled?: Yes Hospital Course Hospital Course Hospital course: This is a 68-year-old male PMHx of developmental delay, RCC s/p right nephrectomy 2016, hydrocelectomy, BPH, DM, left inguinal hernia repair, left hydrocele presenting with bright blood per rectum. Admitted for acute anemia 2/2 hematochezia. Admission hemoglobin was 10.9.patient received 1 unit RBCs. He completed colonoscopy with GI which showed hemorrhoids, moderate diverticulosis, 25 mm polyp of rectosigmoid colon, no active bleed. Polypectomy was performed. Hemoglobin has been stable. No signs of active bleed. Tolerating oral intake without nausea or vomiting. Patient stable to discharge to SNF. GI recommended no follow-up. Please have PCP request polypectomy results from Dr. Gibbs's office. PATIENT INSTRUCTIONS: Follow-up with PCP within 1-2 weeks of discharge. Please have your PCP request polypectomy results from GI, Dr. Gibbs. Return to Emergency Room if symptoms persist, worsen, or new symptoms develop. Continue taking NEW medications as prescribed below: ? FERROUS SULFATE 325 mg daily ? FOLIC ACID 1 mg daily We have discontinued CEFUROXIME 250 Mg tablet Continue with all other medicines as prescribed by your doctor. ADMISSION DIAGNOSES: Acute blood loss anemia (stable) UGIB vs. LGIB Lactic acidosis, type B (resolved) 3/4 SIRS positive (resolved) Prerenal JOLIE (resolved) Mild hyperkalemia ? resolved Hypertension Diabetes mellitus BPH Patient case was discussed with attending, Dr. Clay Villagomez MD and senior residents Dr. Simons and Dr. Mccoy. Carmel Calhoun, PGYI Senior Resident Attestation: I discussed with and supervised the international manager physician involved in the care of this patient. I personally saw and examined the patient and discussed the assessment and plan with the entire medicine team, including my attending. I agree with the discharge plan as documented above. Chandu Mccoy MD PGY2 Internal Medicine Time Spent with Patient Time attestation: Total time spent providing and/or coordinating discharge services: Greater than 35 minutes. Exam Vital Signs Temp Pulse Resp BP Pulse Ox O2 Del Method O2 Flow Rate 98.2 F 96 18 135/80 H 95 Room Air 3 07/21/24 08:00 07/21/24 08:00 07/21/24 08:00 07/21/24 08:00 07/21/24 08:00 07/21/24 08:00 07/21/24 08:00 Narrative Exam GENERAL * Normal appearing, no apparent distress. Able to answer simple questions. HEENT * NCAT.?MARLENE. Oral mucosa is moist. Patent Nares NECK * Supple, nontender, no thyromegaly, no meningismus, no JVD, no step offs CHEST * RRR, no m/g/r * CTAB, no w/r/r. Symmetrical chest rise. No intercostal subcostal retraction * Atraumatic, nontender, no crepitus, symmetrical expansion. ABDOMEN * Soft, flat, nontender. No guarding/rebound tenderness/masses. * Bowel sounds presents EXTREMITIES * Nontender, no cyanosis, no edema * No edema/cyanosis.? SKIN * Warm and dry, no jaundice/rashes. NEUROMUSCULAR * No lumbar or midline, no CVA, no paraspinal muscle spasm or tenderness. * Moves all 4 extremities well, with full ROM and good CSM. * VALDES x4, CN II-XII grossly intact. * No focal neurologic deficits. PSYCHIATRY * Normal mood and affect, cooperative, no SI or HI or hallucinations. Discharge Plan Plan Patient Disposition: Xfer Skilled Nsg Fac (SNF) Care Plan Goals: Follow-up with PCP within 1-2 weeks of discharge. Please have your PCP request polypectomy results from GI, Dr. Gibbs. Return to Emergency Room if symptoms persist, worsen, or new symptoms develop. Continue taking NEW medications as prescribed below: ? FERROUS SULFATE 325 mg daily ? FOLIC ACID 1 mg daily We have discontinued CEFUROXIME 250 Mg tablet Continue with all other medicines as prescribed by your doctor. Prescriptions/Referrals Prescriptions/Med Rec: New ferrous sulfate 325 mg (65 mg iron) tablet,delayed release (DR/EC) 325 mg PO Q OTHER DAY Qty: 30 2RF folic acid 1 mg tablet 1 mg PO QDAY Qty: 30 1RF Continued tamsulosin [Flomax] 0.4 MG capsule,extended release 24hr 0.4 mg PO QDAY Qty: 0 metformin [Glucophage] 500 MG tablet 500 mg PO BID Qty: 0 atorvastatin 20 mg tablet 1 tab PO QDAY docusate sodium 250 mg capsule 1 cap PO BID finasteride 5 mg tablet 5 mg PO QDAY nitrofurantoin macrocrystal 50 mg Capsule 50 mg PO QDAY lisinopril 10 mg tablet 10 mg PO QDAY Discontinued cefuroxime axetil 250 mg tablet 250 mg PO BID Qty: 14 0RF Referrals: Paul Momin MD [Primary Care Provider] - Patient/Caregiver Discharge Instructions Discharge Activity: as per physical therapy and activity as tolerated Education Materials: Colonoscopy Print Language: Wolof Stand Alone Forms: [facility]osseline Award Info., Patient Portal Info Letter Discharge Order Discharge Orders: Discharge (Routine); Ordered 07/21/24 Ordered By: Carmel Calhoun Quality Discharge Quality Measures VTE prophylaxis
[2024-07-21 12:00] VITALS: BP 132/77; PULSE 107; PULSE 65; RESP 18; TEMP 37.6; O2SAT 95
== END 2024-07-21 15:07 | disposition skilled nursing facility (03) | DRG 394 ==
LOC: SERX 03:15 → SERHOLD 05:52 → S3SX 17:30
PROVIDERS: Specialist; Student in an Organized Health Care Education/Training Program; Admitting Provider Internal Medicine; Emergency Provider Emergency Medicine; PCP Hospitalist; Visit Provider Internal Medicine
PROC: 0DJD8ZZ Inspection of Lower Intestinal Tract, Via Natural or Artificial Opening Endoscopic (ICD-10-PCS; CPT 45378; principal; 2024-07-20 13:30)
DX: K63.5 Polyp of colon (principal); D62 Acute posthemorrhagic anemia; N17.9 Acute kidney failure, unspecified; E87.20 Acidosis, unspecified; K59.00 Constipation, unspecified; K21.9 Gastro-esophageal reflux disease without esophagitis; N40.0 Benign prostatic hyperplasia without lower urinary tract symptoms; I10 Essential (primary) hypertension; Z79.84 Long term (current) use of oral hypoglycemic drugs; E11.9 Type 2 diabetes mellitus without complications; Z90.5 Acquired absence of kidney; Z85.528 Personal history of other malignant neoplasm of kidney; E87.5 Hyperkalemia; K64.8 Other hemorrhoids; K57.30 Diverticulosis of large intestine without perforation or abscess without bleeding
CPT/HCPCS: 36415; 36430; 74018; 74176; 76705; 80048; 80053; 80061; 81001; 83036; 83605; 83735; 83880; 84100; 84145; 84443; 85014; 85018; 85025; 85610; 86850; 86900; 86901; 86923; 87040; 87081; 93005; 93225; 96365; 99285; A4217; A4649; J1200; J2250; J2470; J2543; J3010; J7030; J7040; J7050; P9016; Q0138; A9270

== ENCOUNTER 2025-04-25 22:26 | Emergency (ER) | payer MEDICARE, MEDICAID, SELFPAY ==
[2025-04-25 22:33] VITALS: BP 158/100; PULSE 91; RESP 19; TEMP 37.2; O2SAT 95
[2025-04-25 22:34] VITALS: BMI 25.8
[2025-04-25 22:42] VITALS: PULSE 102; RESP 18; O2SAT 97
--- NOTE | 2025-04-25 23:02 | XR_ITS ---
Examination: CT cervical spine without contrast 2-D sagittal reconstructions 2-D coronal reconstructions 3-D reconstructions. Exam date and time: April 26, 2025, 0149 hours INDICATIONS: Patient fell today with injury to the neck, neck pain CTDI:vol (mGy) 16.5 DLP: (mGycm) 312 Technique: Multiple 2 mm axial sections of the cervical spine have been obtained. The coronal and sagittal reconstructions have been obtained. 3-D reconstructions have been obtained. Low dose protocols were performed. One or more of the following dose reduction techniques were used; automated exposure control, adjustment of the mA and/or KV according to patient size, use of iterative reconstruction technique. Findings: Axial sections demonstrate intact base of the skull. C1 exhibit satisfactory relationship to the odontoid. No acute cervical vertebral body fracture seen. Alignment posterior spinous processes satisfactory. Small sclerotic density T2 Impression: No acute cervical fracture.
--- NOTE | 2025-04-25 23:02 | XR_ITS ---
Examination: CT brain head without contrast. 2-D sagittal coronal reconstructions Date and time of exam: April 26, 2025, 0145 hours INDICATIONS: Ground-level fall today with injury to the head, head pain CTDI: vol (mGy): 54.7 DLP: (mGycm): 1082 Technique: Multiple CT axial sections of the brain have been obtained, 5 mm slice thickness. Contrast has not been administered. 2-D sagittal, coronal reconstructions have been obtained Low dose protocols were performed. One or more of the following dose reduction techniques were used; automated exposure control, adjustment of the mA and/or KV according to patient size, use of iterative reconstruction technique. Findings: No significant ventricular enlargement. Mild acute hemorrhage in the occipital horns, axial image 27 No mass effect or midline shift Basal cisterns are not remarkable. Fourth ventricle is midline. Cranial vault intact. Impression: Small areas of intraventricular hemorrhage in the occipital horns, recommend close clinical observation and short-term repeat CT brain scans
--- NOTE | 2025-04-25 23:02 | PD.EDFALL ---
ED Fall Injury RME/HPI General Chief Complaint: Fall Stated Complaint: FALL Time Seen by Provider: 04/25/25 23:01 Arrival date/time: 04/25/25 22:26 RME / HPI RME / HPI Narrative: Dr. oSod?s Main ED Evaluation: 69yo male ANDREI from [facility] after he accidentally rolled off the bed, striking his head and both knees. No reported headache, vomiting, visual disturbance, neck pain, chest pain, or shortness of breath. No blood thinners. PMH includes DM, HTN, HLD, mental delay. PSH noncontributory. Social history: resides at [facility], no alcohol or illicit drug abuse. Related Data Home Medications ?Medication ?Instructions ?Recorded ?Confirmed tamsulosin 0.4 mg capsule (Flomax) 0.4 mg PO QDAY ##0 10/05/15 07/17/24 metformin 500 mg tablet 500 mg PO BID #0 tabs 01/30/16 07/17/24 (Glucophage) nitrofurantoin macrocrystal 50 mg 50 mg PO QDAY 08/27/18 07/17/24 capsule lisinopril 10 mg tablet 10 mg PO QDAY 11/22/19 07/17/24 atorvastatin 20 mg tablet 1 tab PO QDAY 12/25/21 07/17/24 docusate sodium 250 mg capsule 1 cap PO BID 12/25/21 07/17/24 finasteride 5 mg tablet 5 mg PO QDAY 12/25/21 07/17/24 Previous Rx's ?Medication ?Instructions ?Recorded ferrous sulfate 325 mg (65 mg 325 mg PO Q OTHER DAY #30 tabs 07/21/24 iron) tablet,delayed release folic acid 1 mg tablet 1 mg PO QDAY #30 tabs 07/21/24 bacitracin zinc 500 unit/gram 1 applic topical TID #14 grams 04/26/25 topical ointment ciprofloxacin HCl 250 mg tablet 250 mg PO BID 7 days #14 tabs 04/26/25 Allergies Allergy/AdvReac Type Severity Reaction Status Date / Time ibuprofen Allergy unknown Verified 04/25/25 22:45 iodine Allergy Verified 04/25/25 22:45 Review of Systems Review of Systems Systems Reviewed: All systems reviewed, normal except as documented Past Medical History Past Medical History NEUROLOGIC: Negative Neurological Disorders or Seizures CARDIAC: Negative Cardiac Disorders or Congestive Heart Failure RESPIRATORY: Negative Chronic Obstructive Pulmonary Disease (COPD) GASTROINTESTINAL: Positive Gastrointestinal Disorders and Gastroesophageal Reflux Disease GENITOURINARY: Positive Genitourinary Disorders and Renal Disease MUSCULOSKELETAL: Negative Musculoskeletal Disorders ENT: Positive Cataracts ENDOCRINE: Positive Endocrine Disorders and Diabetes Mellitus Type 2; Negative Diabetes Mellitus Type 1 HEMATOLOGIC: Negative Blood Disorders OTHER HISTORY: Positive Developmental Delay; Negative Hospitalization, Shingles, Falls, Blood Transfusions, Anesthesia Reactions, Chemotherapy, Radiation Therapy or MRSA Social History SMOKING STATUS: Unknown if ever smoked ED Exam Narrative Physical exam: GENERAL APPEARANCE: alert and oriented x 3, can follow simple commands, response is slightly delayed although mostly accurate, well-developed, well-nourished, no acute distress VITALS: All vitals were reviewed and the pulse ox is 95% on room air, which is normal according to my interpretation. HEENT: Normocephalic, abrasion to the right periorbital and maxillary regions with localized edema, but no step-off; pupils equal, round, reactive to light; EOMI; mucous membranes pink, moist; oropharynx clear NECK: Supple, nontender LUNGS: CTABL; no wheezes, no rales, no rhonchi HEART: Regular rate, regular rhythm; normal S1, S2; no murmurs ABDOMEN: non distended; normal BS; soft, no tenderness, no guarding, no rebound; no masses, no organomegaly, no hernia BACK: no CVA tenderness EXTREMITIES: mild erythema and slight warmth to the left knee with full ROM and no ligamentous instability; abrasion to the anterior right knee without any effusion, no ligamentous instability, distal function is intact NEUROLOGIC: awake; alert and oriented x3; cranial nerves II-XII grossly intact; no focal sensory or motor deficits PSYCHIATRIC: appropriate mood and affect SKIN: warm, dry, normal color; no rashes Course Quality Measures none Orders Category Date Time Status CT cervical spine wo con Stat Exams 04/25/25 23:[address] head/brain wo con Stat Exams 04/25/25 23:02 Taken CBC [CBC] Stat Lab 04/25/25 23:42 Completed CMP [Comprehensive Metabolic Panel] Stat Lab 04/25/25 23:42 Completed Urinalysis, C/S if Indicated Stat Lab 04/25/25 23:14 Completed Urine Culture Stat Lab 04/25/25 23:14 Received Tetanus, Diphtheria Toxoids/Pf [Tenivac-Adult] Med 04/26/25 01:38 Discontinued 0.5 ml IMI .ONCE ONE cefTRIAXone [Rocephin] 1,000 mg Med 04/26/25 02:15 Discontinued Lidocaine 1% 20 ml [Xylocaine 1% 20 ML] 2.1 ml IM X1 cefTRIAXone/D5w 1gm IV premix [Rocephin/D5w 1gm IV Med 04/26/25 01:30 Discontinued premix] 1 gm in 50 ml IV X1 Vital Signs Vital signs: Vital Signs Temperature 99 F 04/25/25 22:33 Pulse Rate 91 04/25/25 22:33 Respiratory Rate 19 04/25/25 22:33 Blood Pressure 158/100 H 04/25/25 22:33 Pulse Oximetry (%) 95 04/25/25 22:33 Oxygen Delivery Method Room Air 04/25/25 22:33 Fall MDM Narrative MDM Narrative:: Scribe Attestation: 04/25/25 - Kip, Maylin Cuellar am scribing for and in the presence of Dr. Sood. 69yo male BIBA from SNF after he accidentally rolled off the bed, striking his head and both knees. No reported headache, vomiting, visual disturbance, neck pain, chest pain, or shortness of breath. Please see PE findings. Lab markers demonstrated WBC 7.0, mild anemia with Hgb 13.2. Chemistries demonstrated slightly declined renal function, glucose mildly elevated 160, UA with obvious infection. CT head and cervical spine are pending. Patient given empiric IV antibiotics and observed for extended period of time. Patient remained neurologically intact. CT head demonstrates dependent acute hemorrhage within occipital horns of the lateral ventricles (best seen on axial image 27). Patient remains neurologically unchanged. Will contact neurosurgery for consideration of transport versus follow-up CT in 6-12 hours. 0459: Discussed case with [facility]'s transfer center. Discussed patients ED course, exam findings, labs, and radiology results. Awaiting on a callback at this time. 0505: Discussed case with Dr. Boyer from neurosurgery at [facility] regarding possible transfer. Discussed patients ED course, exam findings, labs, and radiology results. Recommends transferring the patient to a facility where they have a diagnostic angiography. 0531: Discussed case with [facility] transfer center. Discussed patients ED course, exam findings, labs, and radiology results. Discussed case with Dr. Loera, neuro IR, and Dr. Gleason, ED physician, who accepts the patient for ED-ED transfer. Dx: traumatic IVH Patient data External records reviewed:: [facility] previous records (Per chart review, patient was admitted here on 07/17/24 for hematochezia. ) and EMS form Clinical information provided by:: EMS Social determinants that could affect healthcare access:: housing (SNF resident) Patient has the following chronic illnesses:: DM, HTN, HLD, mental delay How is presenting disease/condition affected by chronic disease/condition?: uneffected by Evaluation data The following diagnostics were reviewed and interpreted by me:: lab results and radiology exam(s) Lab and/or radiology exams considered but not ordered:: none Interpretation Summary: [facility] Preliminary Report Draft Patient: DULCE CALVO. Record#: [id number] Birthdate: 1955 Age/Sex: 69 / M Location: [facility] Attending Dr: Ordering Physician: Date of Service: Procedure(s): Accession Number(s): cc: ~ CT scan of the head without intravenous contrast (axial sections with sagittal and coronal reformats) April 26, 2025 0145 hours Clinical History: Trauma No prior study is available for comparison. Findings: There is dependant hyperdensity in the occpital horns of both lateral ventricles. There is no evidence of mass effect or midline shift. There is a small area of subcortical encephalomalacia in the left frontal lobe. There are mild periventricular white matter hypodensities, likely representing chronic small vessel ischemia. There is mild volume loss. The calvarium is intact. There is atheromatous calcification of the intracranial arteries. The mastoid air cells and the visualized paranasal sinuses are clear. Impression: Small acute intraventricular hemorrhage as described. Recommend follow-up. No evidence of midline shift or calvarial fracture. Small area of encephalomalacia in the left frontal lobe.. Chronic small vessel ischemia and volume loss. Discussion Details: Results verbally communicated to : Dr. Calderon at 02:42 AM 04/26/2025 Report Electronically Signed By: Prince Ndiaye 04/26/2025 2:58:34 AM [EST] [facility] Preliminary Report Draft Patient: DULCE CALVO. Record#: [id number] Birthdate: 1955 Age/Sex: 69 / M Location: [facility] Attending Dr: Ordering Physician: Date of Service: Procedure(s): Accession Number(s): cc: ~ CT scan of the cervical spine without intravenous contrast (axial sections with sagittal and coronal reformats) April 26, 2025 0145 hours Clinical History: trauma No prior study is available for comparison. Findings: The bones are osteopenic. There is heterogenous bone marrow attenuation. Straightening of the cervical spine is identified, which may be related to muscle spasm. There is no acute fracture or subluxation. Moderate degenerative changes are noted in the form of multilevel marginal osteophytes, decreased disc spaces and facet arthropathy, predominantly at the C3-C4 and C4/5 levels. Multilevel mild bilateral neuroforaminal narrowing .There is a sclerotic density in the T2 vertebral body likely representing a bone island. The prevertebral soft tissues are unremarkable. Impression: No evidence of acute fracture or traumatic subluxation. Moderate degenerative changes. Report Electronically Signed By: Prince Ndiaye 04/26/2025 3:03:18 AM [EST] Medications / Prescriptions Medications or Prescriptions considered but not ordered:: none Medication administrations:: Medication Administration History Discontinued Medications Ceftriaxone Sodium 1,000 mg/ (Lidocaine HCl 2.1 ml) 0 mg IM X1 ONE Stop: 04/26/25 02:16 Last Admin: 04/26/25 02:49 Dose: 2.1 mg Documented By: SE Ceftriaxone Sodium/Dextrose (Rocephin/D5w 1gm Iv Premix) 1 gm in 50 mls @ 100 mls/hr IV X1 ONE Stop: 04/26/25 01:59 Last Admin: 04/26/25 02:56 Dose: Not Given Documented By: SE Non-Admin Reason: Cancelled by Provider Tetanus/Diphtheria Toxoids (Tetanus,Diphtheria Toxoids/Pf (Adult) 0.5 Ml Syringe) 0.5 ml IMi .ONCE ONE Stop: 04/26/25 01:39 Last Admin: 04/26/25 02:47 Dose: 0.5 ml Documented By: SE none Consultations Consultation(s) initiated? (list below): Yes Diagnosis Fall Differential Diagnosis: other (fracture, contusion, abrasion, concussion) Most likely diagnosis given after review of the tests above:: see clinical impression below Admission Indicated Admission indicated?: not indicated Explain why admission is indicated or not indicated:: Patient requires a higher [id number]. Admission Request Was there a request for admission?: No Disposition Plan Disposition Plan: Transfer Discharge Plan Plan Patient Disposition: [facility] Facility Pt Being Transferred to: [facility] Service Needed for Transfer: Neurosurgery Prescriptions/Referrals Prescriptions/Med Rec: New bacitracin zinc 500 unit/gram ointment 1 applic topical TID Qty: 14 0RF ciprofloxacin HCl 250 mg tablet 250 mg PO BID 7 Days Qty: 14 0RF No Action tamsulosin [Flomax] 0.4 MG capsule,extended release 24hr 0.4 mg PO QDAY Qty: 0 metformin [Glucophage] 500 MG tablet 500 mg PO BID Qty: 0 atorvastatin 20 mg tablet 1 tab PO QDAY docusate sodium 250 mg capsule 1 cap PO BID finasteride 5 mg tablet 5 mg PO QDAY nitrofurantoin macrocrystal 50 mg Capsule 50 mg PO QDAY lisinopril 10 mg tablet 10 mg PO QDAY ferrous sulfate 325 mg (65 mg iron) tablet,delayed release (DR/EC) 325 mg PO Q OTHER DAY Qty: 30 2RF folic acid 1 mg tablet 1 mg PO QDAY Qty: 30 1RF Referrals: No Primary/Family,Physician [Primary Care Provider] - In 1 week Problem List Clinical Impression: Contusion of head, Abrasion, Contusion of knee, left, Acute UTI, Traumatic intraventricular hemorrhage Patient/Caregiver Discharge Instructions Print Language: Luxembourgish
[2025-04-25 23:30] VITALS: BP 134/79; PULSE 72; RESP 18; O2SAT 97
[2025-04-26 00:02] LABS: Collection Type, Urine Clean Catch
[2025-04-26 00:10] LABS: Basophils # (Auto) 0.0 Thou/mm3 (0.0-0.2); Basophils % (Auto) 1 % (0-2.5); Eosinophils # (Auto) 0.2 Thou/mm3 (0.0-0.5); Eosinophils % (Auto) 3 % (0-10); Hematocrit 40.7 % (41.0-53.0); Hemoglobin 13.2 g/dL (13.5-16.0); Immature Granulocytes Auto 0.01 Thou/mm3 (0.00-0.00); Lymphocytes # (Auto) 1.8 Thou/mm3 (1.0-4.8); Lymphocytes % (Auto) 26 % (10-50); Mean Corpuscular HGB Conc 32.4 g/dl (31.0-37.0); Mean Corpuscular Hemoglobin 30.1 pg (25.0-35.0); Mean Corpuscular Volume 93 fL (80-100); Monocytes # (Auto) 0.7 Thou/mm3 (0.0-0.8); Monocytes % (Auto) 10 % (0-12); Neutrophils # (Auto) 4.3 Thou/mm3 (1.8-7.7); Neutrophils % (Auto) 61 % (37-80); Nucleated Red Blood Cell # 0.00 Thou/mm3 (0.00-0.00); Nucleated Red Blood Cell % 0 /100 WBC (0); Platelet Count 181 Thou/mm3 (140-440); RDW Standard Deviation 45.6 fL (35.1-43.9); Red Blood Count 4.39 Miln/mm3 (4.50-5.90); White Blood Count 7.0 Thou/mm3 (3.8-10.6)
[2025-04-26 00:29] LABS: Bacteria,Urine 2+; Bilirubin,Urine Negative (Negative); Blood,Urine Trace (Negative); Clarity,Urine Turbid (Clear/Hazy); Color,Urine Yellow (Lt Yel-Yel); Glucose, Urine Negative (Negative); Ketones,Urine Negative (Negative); Leukocyte Esterase,Urine Positive (Negative); Nitrite,Urine Positive (Negative); PH,Urine 6.0 (5.0-7.0); Protein,Urine Trace (Neg - Trace); RBC,Urine 8 /hpf (0-3); Specific Gravity,Urine 1.019 (1.001-1.035); Squamous Epithelial Cell,Urine 7 /hpf (0-5); Urobilinogen,Urine Negative mg/dL (0.0-1.0); WBC,Urine 171 /hpf (0-5)
[2025-04-26 00:31] LABS: Culture Indicated,Urine Yes
[2025-04-26 00:36] LABS: Alanine Aminotransferase 7 U/L (10-49); Albumin, Serum 3.7 gm/dL (3.4-4.8); Albumin/Globulin Ratio 1.6 (1.2-2.2); Alkaline Phosphatase 59 U/L (46-116); Anion Gap 10 (7-16); Aspartate Amino Transferase 14 U/L (0-34); BUN/Creatinine Ratio 18 Ratio (12-20); Bilirubin,Total 0.3 mg/dL (0.3-1.2); Blood Urea Nitrogen 25 mg/dL (9-23); Calcium 8.8 mg/dL (8.3-10.6); Calcium (Corrected) 9.0 mg/dL (8.5-10.1); Carbon Dioxide 26.6 mMol/L (20.0-31.0); Chloride 107 mMol/L (98-107); Creatinine (Component) 1.4 mg/dL (0.6-1.3); Estimated Creatinine Clearance 47.5 mL/min (>60); Globulin 2.3 gm/dL (2.3-3.5); Glucose 160 mg/dL (74-106); Osmolality,Calculated 294 (275-295); Potassium 3.6 mMol/L (3.4-5.1); Sodium 144 mMol/L (136-145); Total Protein 6.0 gm/dL (5.7-8.2); eGFR 54 See Note
[2025-04-26] MEDS: TETANUS,DIPHTHERIA TOXOIDS/PF (ADULT) 0.5 ML SYRINGE IMi (02:47)
[2025-04-26] MEDS: cefTRIAXone 1,000 MG, LIDOCAINE 1% 20 ML 2.1 ML IM (02:49)
--- NOTE | 2025-04-26 02:58 | PRELIM_ITS ---
CT scan of the head without intravenous contrast (axial sections with sagittal and coronal reformats) April 26, 2025 0145 hours Clinical History: Trauma No prior study is available for comparison. Findings: There is dependant hyperdensity in the occpital horns of both lateral ventricles. There is no evidence of mass effect or midline shift. There is a small area of subcortical encephalomalacia in the left frontal lobe. There are mild periventricular white matter hypodensities, likely representing chronic small vessel ischemia. There is mild volume loss. The calvarium is intact. There is atheromatous calcification of the intracranial arteries. The mastoid air cells and the visualized paranasal sinuses are clear. Impression: Small acute intraventricular hemorrhage as described. Recommend follow-up. No evidence of midline shift or calvarial fracture. Small area of encephalomalacia in the left frontal lobe.. Chronic small vessel ischemia and volume loss. Discussion Details: Results verbally communicated to : Dr. Calderon at 02:42 AM 04/26/2025 Report Electronically Signed By: Prince Ndiaye 04/26/2025 2:58:34 AM [EST]
--- NOTE | 2025-04-26 03:04 | PRELIM_ITS ---
CT scan of the cervical spine without intravenous contrast (axial sections with sagittal and coronal reformats) April 26, 2025 0145 hours Clinical History: trauma No prior study is available for comparison. Findings: The bones are osteopenic. There is heterogenous bone marrow attenuation. Straightening of the cervical spine is identified, which may be related to muscle spasm. There is no acute fracture or subluxation. Moderate degenerative changes are noted in the form of multilevel marginal osteophytes, decreased disc spaces and facet arthropathy, predominantly at the C3-C4 and C4/5 levels. Multilevel mild bilateral neuroforaminal narrowing .There is a sclerotic density in the T2 vertebral body likely representing a bone island. The prevertebral soft tissues are unremarkable. Impression: No evidence of acute fracture or traumatic subluxation. Moderate degenerative changes. Report Electronically Signed By: Prince Ndiaye 04/26/2025 3:03:18 AM [EST]
--- NOTE | 2025-04-26 06:01 | PC.NURSE ---
CALLED [facility], SPOKE WITH TIN TO ADVISE THEM THAT PATIENT IS BEING TRANSFERRED TO [facility]
--- NOTE | 2025-04-26 07:10 | PC.NURSE ---
PT ACCEPTED TO [facility] BY DR BIANCA HENSLEY. REPORT TO [phone].
[2025-04-26 07:43] VITALS: BP 142/76; PULSE 70; RESP 20; TEMP 36.7; O2SAT 98
[2025-04-26 08:37] VITALS: BP 136/76; PULSE 70; RESP 17; TEMP 36.7; O2SAT 99
--- NOTE | 2025-04-26 09:01 | PC.NURSE ---
REPORT CALLED TO LITO OSBORN AT [facility] [place] [facility]. NO FURTHER QUESTIONS. PATIENT BEING TRANSFERRED.
--- NOTE | 2025-04-26 10:28 | PC.CC ---
1028-Per request from generation engineerSAIRA Swartz faxed clinicals to [facility], as pt is being transferred for HLOC.
== END 2025-04-26 09:04 | disposition short-term general hospital (02) ==
PROVIDERS: Emergency Provider Emergency Medicine
DX: I61.5 Nontraumatic intracerebral hemorrhage, intraventricular (principal); E11.9 Type 2 diabetes mellitus without complications; E78.5 Hyperlipidemia, unspecified; G93.89 Other specified disorders of brain; I10 Essential (primary) hypertension; I67.82 Cerebral ischemia; N39.0 Urinary tract infection, site not specified
CPT/HCPCS: 36415; 70450; 72125; 80053; 81001; 85025; 87077; 87086; 87186; 90714; 99282; J0696; J3490